=== PATIENT | female | born 1965 | race Two or more races ===

== ENCOUNTER 2023-12-04 08:04 | Outpatient (REF) | payer OTHER, MEDICAID, SELFPAY ==
--- NOTE | ~2023-12-04 | XR_ITS ---
EXAMINATION: XR KNEE, RIGHT CLINICAL INFORMATION: Unilateral primary osteoarthritis in the right knee. COMPARISON: None available. TECHNIQUE: Three views of the right knee. FINDINGS: Joint space narrowing is present in the medial and patellofemoral compartments with marginal osteophytes. Lateral compartment appears relatively well preserved. No joint effusion. Bones are osteopenic. No appreciable osseous loose bodies. Mild medial compartment osteoarthritis is also noted in the left knee on the AP view. XR/XR knee RT 3V IMPRESSION: Mild medial and patellofemoral compartment osteoarthritis in the right knee.
== END 2023-12-04 08:05 | disposition home or self-care (01) ==
LOC: HO.HOSX 08:04
PROVIDERS: Visit Provider Physician Assistant
DX: M17.0 Bilateral primary osteoarthritis of knee (principal); Z87.828 Personal history of other (healed) physical injury and trauma
CPT/HCPCS: 20610; 73562; 99212; J1010

== ENCOUNTER 2023-12-04 09:12 | Outpatient (AMB) | payer MEDICAID, SELFPAY ==
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
== END 2023-12-04 10:06 | disposition home or self-care (01) ==
PROVIDERS: Visit Provider Physician Assistant
DX: M17.0 Bilateral primary osteoarthritis of knee (principal); Z04.3 Encounter for examination and observation following other accident; V49.50XA Passenger injured in collision with unspecified motor vehicles in traffic accident, initial encounter
CPT/HCPCS: 20610; 99203

== ENCOUNTER 2025-01-23 08:15 | Outpatient (AMB) | payer OTHER, SELFPAY ==
--- OUTSIDE RECORDS SUMMARY | 2025-01-23 09:02 | XMS_ITS | Encounter Summary ---
Author Organization [employer] Address [address] [place] [address] [address] [place] [address] Care Team Providers Care Canoe Builder Name Role Phone Marlyn Oneil Primary Care Provider Unavailable Maria Isabel Peguero Unavailable Unavailable Inactive/Transferred Primary Care Provider Unava ilable Reason for Visit * Reason Comments Med Change Request Encounter Details Date Type Department Care Team (Late st Contact Info) Description 03/12/2023 Refill [facility] [address] [place] [address] Marlyn Oneil FNP Chronic fatigue; Moderate episode of recurrent major depressive disorder (CMS/HCC) Social History Tobacco Use Types Packs/Day Years Used Date Smoking Tobacco: Former Cigarettes Smokeless Tobacco: Never Alcohol Use Standard Drinks/Week Comments Never 0 (1 standard drink = 0.6 oz pur e alcohol) Depression Answer Date Recorded Patient Health Questionnaire-9 Score 12 10/23/2022 Housing Stability Answer Date Recorded What is your housing situation today? I have alana suarez 03/05/[address] you li ve. Do you have problems with any of the following? None of the above 03/05/2023 Food Insecurity Answer Date Recorded Within the past 12 months, y ou worried that your food would run out before you got money to buy more: Never True 03/05/2023 Within the past 12 months,th e food you bought just didn't last and you didn't have enough money to get more: Never True Transportation Answer Date Recorded In the past 12 months, has l ack of transportation kept you from medical appts, meetings, work or from getting things needed for daily living? No 03/05/2023 Utilities Answer Date Recorded In the past 12 months, has t he electric, gas, oil or water company threatened to shut off services in your home? No 03/05/2023 Depression Answer Date Recorded Patient Health Questionnaire-2 Score 3 10/23/2022 Education Answer Date Recorded What is the highest level of school you have completed or the highest degree you have received? 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 Did not need refill at this time documented in this encounter Plan of Treatment Not on file documented as of this encounter Visit Diagnoses Diagnosis Chronic fatigue Other malaise and fatigue Moderate episode of recurrent major depressive disorder (CMS/HCC) documented in this encounter Additional Health Concerns Assessment Noted Time PHQ-9 Depression Total Score: 12 023 2:34 PM EDT documented as of this encounter Care Teams Canoe Builder Relationship Specialty Start Date End Date Marlyn Oneil FNP PCP - General Family Medicine 08/01/22 07/20/24 Inactive/Transferred PCP - General 07/21/24 07/21/24 Maria Isabel Peguero Community Health Worker 09/15/22 documented as of this encounter
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
--- OUTSIDE RECORDS SUMMARY | 2025-01-23 09:02 | XMS_ITS | Encounter Summary ---
Author Organization [employer] Address [address] [place] [address] [address] [place] [address] Care Team Providers Care Airline Mechanic Name Role Phone Marlyn Oneil MANAGER ACTION Primary Care Provider Unavailable Maria Isabel Peguero Unavailable Unavailable Inactive/Transferred Primary Care Provider Unava ilable Encounter Details Date Type Department Care Team (Late st Contact Info) Description 12/07/2023 Orders Only [place] [facility] [address] [place] [address] Lora Shelby NP Cough in adult patient; History of asthma Social History Tobacco Use Types Packs/Day Years [...] 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 on file Not on file documented as of this encounter Plan of Treatment Not on file documented as of this encounter Procedures Procedure Name Priority Date/Time Associated Diagnosis Comments PULMONARY FUNCTION TESTING Routine 11/27/2023 Cough in adult patient History of asthma documented in this encounter Results * Pulmonary function test (11/27/2023) [facility]EMAN PFT ORDERABLES Final Result documented in this encounter Visit Diagnoses Diagnosis Cough in adult patient History of asthma Personal history of other diseases of respiratory system documented in this encounter Additional Health Concerns Assessment Noted Time PHQ-9 Depression Total Score: 9 08/05/19 24 11:58 AM EDT documented as of this encounter Care Teams Airline Mechanic Relationship Specialty Start Date End Date Marlyn Oneil FNP PCP - General Family Medicine 08/01/22 07/20/24 Inactive/Transferred PCP - General 07/21/24 07/21/24 Maria Isabel Peguero Community Health Worker 09/15/22 documented as of this encounter
--- OUTSIDE RECORDS SUMMARY | 2025-01-23 09:02 | XMS_ITS | Encounter Summary ---
Author Organization [employer] Address [address] [place] [address] [address] [place] [address] Care Team Providers Care Training Specialist Name Role Phone Marlyn Oneil Primary Care Provider Unavailable Maria Isabel Peguero Unavailable Unavailable Inactive/Transferred Primary Care Provider Unava ilable Reason for Visit * Reason Comments Med Change Request Encounter Details Date Type Department Care Team (Late st Contact Info) Description 03/12/2023 Refill [place] [facility] [address] [place] [address] Marlyn Oneil FNP Chronic fatigue; Moderate episode [...] 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
--- OUTSIDE RECORDS SUMMARY | 2025-01-23 09:02 | XMS_ITS | Encounter Summary ---
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 on file Not on file documented as of this encounter Plan of Treatment Not on file documented as of this encounter Visit Diagnoses Diagnosis Paraesophageal hernia Diaphragmatic hernia without mention of obstruction or gangrene documented in this encounter Additional Health Concerns Assessment Noted Time PHQ-9 Depression Total Score: 9 08/05/19 24 11:58 AM EDT documented as of this encounter Care Teams Tannery Worker Relationship Specialty Start Date End Date Marlyn Oneil FNP PCP - General Family Medicine 08/01/22 07/20/24 Inactive/Transferred PCP - General 07/21/24 07/21/24 Maria Isabel Peguero Community Health Worker 09/15/22 documented as of this encounter
--- OUTSIDE RECORDS SUMMARY | 2025-01-23 09:02 | XMS_ITS | Encounter Summary ---
Author Organization [employer] Address [address] [place] [address] [address] [place] [address] Care Team Providers Care Undercover Operator Name Role Phone Marlyn Oneil Primary Care Provider Unavailable Maria Isabel Peguero Unavailable Unavailable Inactive/Transferred Primary Care Provider Unava ilable Reason for Visit * Reason Comments Med Refill Encounter Details Date Type Department Care Team (Late st Contact Info) Description 12/01/2023 Refill [place] [facility] [address] [place] [address] Marlyn Oneil FNP Uncomplicated severe persistent asthma Social History Tobacco Use Types Packs/Day [...] the past 12 months, has t he [employer], gas, oil or water company threatened to [...] 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 Encourage pt to get up to date with all adult vaccines including RSV, annual influenza vaccine, COVID 19 booster when available and pneumonia vaccine. * Telephone Encounter - ELINA George - 12/02/2023 2:10 PM EDT Already sent. documented in this encounter Plan of Treatment Not on file documented as of this encounter Visit Diagnoses Diagnosis Uncomplicated severe persistent asthma documented in this encounter Additional Health Concerns Assessment Noted Time PHQ-9 Depression Total Score: 9 08/05/19 24 11:58 AM EDT documented as of this encounter Care Teams Undercover Operator Relationship Specialty Start Date End Date Marlyn Oneil FNP PCP - General Family Medicine 08/01/22 07/20/24 Inactive/Transferred PCP - General 07/21/24 07/21/24 Maria Isabel Peguero Community Health Worker 09/15/22 documented as of this encounter
--- OUTSIDE RECORDS SUMMARY | 2025-01-23 09:03 | XMS_ITS | Encounter Summary ---
Author Organization [employer] Address [address] [facility] [address] [place] [address] Care Team Providers Care Molasses Coloring Operator Name Role Phone Marlyn Oneil ELINA Primary Care Provider Unavailable Maria Isabel Peguero Unavailable Unavailable Inactive/Transferred Primary Care Provider Unava ilable Encounter Details Date Type Department Care Team (Late st Contact Info) Description 07/27/2023 Orders Only [place] [facility] [address] [place] [address] Provider, MD Bryant Social History Tobacco Use Types Packs/Day Years Used Date Smoking Tobacco: Former Cigarettes Passive Smoke Exposure: Past Smokeless Tobacco: Never Alcohol Use Standard Drinks/Week Comments Never 0 (1 standard drink = 0.6 oz pur e alcohol) Depression Answer Date Recorded Patient Health Questionnaire-9 Score 18 05/06/2023 Patient Health Questionnaire-9 Score 18 05/06/2023 Last PHQ-9: Questionnaire Data Not on file 1 07/07/2022 Housing Stability Answer Date Recorded What is [...] Answer Date Recorded Patient Health Questionnaire-2 Score 6 05/06/2023 Education Answer Date Recorded What is the [...] 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 on file Not on file documented as of this encounter Plan of Treatment Not on file documented as of this encounter Procedures Procedure Name Priority Date/Time Associated Diagnosis Comments XR HIPS BILATERAL 2 VIEWS WITH OR WITHOUT PELVIS Routine 07/20/2023 6:49 PM EST documented in this encounter Results * XR Hips Bilateral 2 Views with or without Pelvis (07/20/2023 6:49 PM EST) Anatomical Region Laterality Modality Lower Extremities, Hip Bilateral Radiograp hic Imaging us Historical Provider MD DIMAS XR PROCEDURES Final R esult documented in this encounter Visit Diagnoses Not on filedocumented in this encounter Additional Health Concerns Assessment Noted Time PHQ-9 Depression Total Score: 18 023 11:30 AM EST documented as of this encounter Care Teams Molasses Coloring Operator Relationship Specialty Start Date End Date Marlyn Oneil FNP PCP - General Family Medicine 08/01/22 07/20/24 Inactive/Transferred PCP - General 07/21/24 07/21/24 Maria Isabel Peguero Community Health Worker 09/15/22 documented as of this encounter
--- OUTSIDE RECORDS SUMMARY | 2025-01-23 09:03 | XMS_ITS | Clinical Summary ---
Author Organization [facility] Address [address] [facility] [address] [place] [id number] Phone Care Team Providers Care Hairspring Staker Name Role Phone Destin White Marlynemily Gustafson SPRAY MACHINE TENDER Primary Care Pr ovider Allergies Active Allergy Reactions Criticality Noted Date Comments Aspirin Nausea and/or Vomiting 03/16/2019 Baclofen Swelling 03/16/2019 edema Sulfamethoxazole-Trimetho prim 03/16/2019 Throat burning Ciprofibrate 01/07/2017 Ciprofloxacin 03/16/2019 Fluoxetine Mental Status Change 03/16/2019 Gabapentin Swelling 03/16/2019 edema Ibuprofen Nausea and/or Vomiting 03/16/2019 Pregabalin 03/16/2019 ?SJS Succinylcholine 01/07/2017 Succinylcholine Chloride Anaphylaxis High 03/16/2019 Tizanidine Dizziness,Hallucinat ions High 05/09/2021 Medications omeprazole (PRILOSEC) 20 MG capsule Take 20 mg by mouth 2 (two) times a day. Active fluticasone propion-salmetero l (ADVAIR DISKUS) 500-50 mcg/dose DISKUS Inhale 500 mcg/actuation of fluticasone into the lungs 2 (two) times a day. Active albuterol 90 mcg/actuation inhaler Inhale 2 puffs into the lungs every 6 (six) hours as needed. Active DULoxetine (CYMBALTA) 30 MG capsuleIndication s:Fibromyalgia Take 2 capsules (60 mg total) by mouth 2 (two) times a day. 180 capsule 1 0 Active cholecalciferol, vitamin D3, 50 mcg/drop (2, 000 unit/drop) DropIndications:V itamin D insufficiency Take 4,000 Units by mouth daily. 30 mL 2 2 Active Medication-Free TextIndications:F ibromyalgia Naltrexone 3mg nightly 30 capsule 1 2 Active Active Problems Problem Noted Date Diagnosed Date YUDELKA positive 08/11/2021 Assessment & Plan (08/11/2021 10:26 PM EDT): I have reviewed with Candelaria that there are no additional data to confirm major systemic rheumatic disease(s) such as systemic lupus erythematosus, Sjogren's syndrome etc. at this time. Low positive YUDELKA in an individual 55 years of age and older without additional abnormalities may be considered a sign of immunologic senescence I previously provided her with literature on slow acting disease modifying antirheumatic drug (DMARD)-Plaquenil that is documented in literature to help with fatigue, arthralgias, joint stiffness and reduce the rate of immunologic drive and therefore flares of the disease. She does not feel ready to start any additional medications at this time. Dry eye syndrome of both eyes 05/09/2021 Assessment & Plan (08/07/2021 3:33 PM EDT): Keep well-hydrated. Avoid spicy and acidic foods. Diligent mouth hygiene. Regular dental checkups. Assessment & Plan (05/25/2021 9:49 PM EST): Keep well-hydrated. Avoid spicy and acidic foods. Diligent eyes and mouth hygiene. Regular ocular and dental checkups. Fibromyalgia 03/16/2019 Assessment & Plan (08/07/2021 3:34 PM EDT): We discussed the diagnosis of fibromyalgia, its natural history, and treatment. Specifically, we discussed that treatment requires many interventions and recognition that we are often unable to get patients completely pain free. Management of fibromyalgia requires patient engagement to address any underlying depression, anxiety, or sleep disorder. Further, patients are encouraged to engage in regular physical activity. Some studies have suggested that Hans Chi is effective. Other physical activity may including water-based aerobics, gentle yoga, walking, biking, Pilates etc. In terms of pharmacotherapy, there are many options, including tricyclic antidepressants, duloxetine, gabapentin or pregabalin, and cyclobenzaprine as well as other similar medications to those listed. In this case, the patient might try to continue on current Cymbalta and focus on nonpharmacologic measures. Additional benefit will be from following the advice written by Dr Mac Jones in his book [employer] catastrophe living addressing management strategies for patients with fibromyalgia utilizing mindfulness approach. Assessment & Plan (05/25/2021 9:49 PM EST): We discussed the diagnosis of fibromyalgia, its natural history, and treatment. Specifically, we discussed that treatment requires many interventions and recognition that we are often unable to get patients completely pain free. Management of fibromyalgia requires patient engagement to address any underlying depression, anxiety, or sleep disorder. Further, patients are encouraged to engage in regular physical activity. Some studies have suggested that Hans Chi is effective. Other physical activity may including water-based aerobics, gentle yoga, walking, biking, Pilates etc. In terms of pharmacotherapy, there are many options, including tricyclic antidepressants, duloxetine, gabapentin or pregabalin, and cyclobenzaprine as well as other similar medications to those listed. In this case, the patient might try to continue on current Cymbalta and focus on nonpharmacologic measures. Additional benefit will be from following the advice written by Dr Mac Jones in his book [employer] catastrophe living addressing management strategies for patients with fibromyalgia utilizing mindfulness approach. Assessment & Plan (07/07/2019 12:03 PM EST): We discussed the diagnosis of fibromyalgia, its natural history, and treatment. Specifically, we discussed that treatment requires many interventions and recognition that we are often unable to get patients completely pain free. Management of fibromyalgia requires patient engagement to address any underlying depression, anxiety, or sleep disorder. Further, patients are encouraged to engage in regular physical activity. Some studies have suggested that Hans Chi is effective. Other physical activity may including water-based aerobics, gentle yoga, walking, biking, Pilates etc. In terms of pharmacotherapy, there are many options, including tricyclic antidepressants, duloxetine, gabapentin or pregabalin, and cyclobenzaprine as well as other similar medications to those listed. In this case, the patient might try to continue on current Cymbalta and focus on nonpharmacologic measures. Additional benefit will be from following the advice written by Dr Mac Jones in his book [employer] catastrophe living addressing management strategies for patients with fibromyalgia utilizing mindfulness approach. Assessment & Plan (05/22/2019 10:06 AM EST): We discussed the diagnosis of fibromyalgia, its natural history, and treatment. Specifically, we discussed that treatment requires many interventions and recognition that we are often unable to get patients completely pain free. Management of fibromyalgia requires patient engagement to address any underlying depression, anxiety, or sleep disorder. Further, patients are encouraged to engage in regular physical activity. Some studies have suggested that Hans Chi is effective. Other physical activity may including water-based aerobics, gentle yoga, walking, biking, Pilates etc. In terms of pharmacotherapy, there are many options, including tricyclic antidepressants, duloxetine, gabapentin or pregabalin, and cyclobenzaprine as well as other similar medications to those listed. In this case, the patient might try to continue on current Cymbalta and focus on nonpharmacologic measures. Additional benefit will be from following the advice written by Dr Mac Jones in his book [employer] catastrophe living addressing management strategies for patients with fibromyalgia utilizing mindfulness approach. Assessment & Plan (03/16/2019 10:44 PM EDT): We discussed the diagnosis of fibromyalgia, its natural history, and treatment. Specifically, we discussed that treatment requires many interventions and recognition that we are often unable to get patients completely pain free. Management of fibromyalgia requires patient engagement to address any underlying depression, anxiety, or sleep disorder. Further, patients are encouraged to engage in regular physical activity. Some studies have suggested that Hans Chi is effective. Other physical activity may including water-based aerobics, gentle yoga, walking, biking, Pilates etc. In terms of pharmacotherapy, there are many options, including tricyclic antidepressants, duloxetine, gabapentin or pregabalin, and cyclobenzaprine as well as other similar medications to those listed. In this case, the patient might try to continue on current Cymbalta and focus on nonpharmacologic measures. Additional benefit will be from following the advice written by Dr Mac Jones in his book [employer] catastrophe living addressing management strategies for patients with fibromyalgia utilizing mindfulness approach. ALTON (obstructive sleep apnea) 03/16/2019 Assessment & Plan (08/07/2021 3:35 PM EDT): Close follow-up with binder roller/respiratory therapy. Benefits of reducing weight as close as possible to ideal range for her height reviewed and strongly encouraged Assessment & Plan (05/25/2021 9:48 PM EST): Close follow-up with binder roller/respiratory therapy. Benefits of reducing weight as close as possible to ideal range for her height reviewed and strongly encouraged Assessment & Plan (07/07/2019 12:05 PM EST): Close follow-up with binder roller/respiratory therapy. Benefits of reducing weight as close as possible to ideal range for her height reviewed and strongly encouraged Assessment & Plan (05/22/2019 10:04 AM EST): Close follow-up with binder roller/respiratory therapy. Benefits of reducing weight as close as possible to ideal range for her height reviewed and strongly encouraged Assessment & Plan (03/16/2019 10:36 PM EDT): Close follow-up with binder roller/respiratory therapy. Benefits of reducing weight as close as possible to ideal range for her height reviewed and strongly encouraged On selective serotonin reuptake inhibitor (SSRI) therapy 03/16/2019 Assessment & Plan (08/07/2021 3:34 PM EDT): Monitor for mood swings, increased muscle rigidity and temperature intolerance. Assessment & Plan (05/25/2021 9:50 PM EST): Monitor for mood swings, increased muscle rigidity and temperature intolerance. Assessment & Plan (07/07/2019 12:05 PM EST): Monitor for mood swings, increased muscle rigidity and temperature intolerance. Assessment & Plan (05/22/2019 10:07 AM EST): Monitor for mood swings, increased muscle rigidity and temperature intolerance. Assessment & Plan (03/16/2019 10:46 PM EDT): Monitor for mood swings, increased muscle rigidity and temperature intolerance. Gastroesophageal reflux disease with esophagitis 03/16/2019 Assessment & Plan (08/07/2021 3:34 PM EDT): Avoid late, large, spicy meals. Keep headboard elevated at 45 angle for nighttime. Assessment & Plan (05/25/2021 9:49 PM EST): Avoid late, large, spicy meals. Keep headboard elevated at 45 angle for nighttime. Assessment & Plan (07/07/2019 12:04 PM EST): Avoid late, large, spicy meals. Keep headboard elevated at 45 angle for nighttime. Assessment & Plan (05/22/2019 10:06 AM EST): Avoid late, large, spicy meals. Keep headboard elevated at 45 angle for nighttime. Assessment & Plan (03/16/2019 10:45 PM EDT): Avoid late, large, spicy meals. Keep headboard elevated at 45 angle for nighttime. Class 3 severe obesity due t o excess calories with serious comorbidity and body mass index (BMI) of 40.0 to 44.9 in adult 03/16/2019 Assessment & Plan (08/07/2021 3:29 PM EDT): Portion control. Limit concentrated sugars, saturated fats and calories in the diet. Keep well-hydrated. If unable to achieve expected goal consider formal dietary/nutritional support. Assessment & Plan (05/25/2021 9:48 PM EST): Portion control. Limit concentrated sugars, saturated fats and calories in the diet. Keep well-hydrated. If unable to achieve expected goal consider formal dietary/nutritional support. Assessment & Plan (07/07/2019 12:03 PM EST): Portion control. Limit concentrated sugars, saturated fats and calories in the diet. Keep well-hydrated. If unable to achieve expected goal consider formal dietary/nutritional support. Assessment & Plan (05/22/2019 10:04 AM EST): Portion control. Limit concentrated sugars, saturated fats and calories in the diet. Keep well-hydrated. If unable to achieve expected goal consider formal dietary/nutritional support. Assessment & Plan (03/16/2019 10:36 PM EDT): Portion control. Limit concentrated sugars, saturated fats and calories in the diet. Keep well-hydrated. If unable to achieve expected goal consider formal dietary/nutritional support. PTSD (post-traumatic stress disorder) 03/16/2019 Assessment & Plan (08/07/2021 3:35 PM EDT): I reviewed with patient benefit of personal psychotherapy though she remains hesitant at this time to start it Assessment & Plan (05/25/2021 9:50 PM EST): I reviewed with patient benefit of personal psychotherapy though she remains hesitant at this time to start it Assessment & Plan (07/07/2019 12:05 PM EST): I reviewed with patient benefit of personal psychotherapy though she remains hesitant at this time to start it Assessment & Plan (05/22/2019 10:07 AM EST): I reviewed with patient benefit of personal psychotherapy though she remains hesitant at this time to start it Assessment & Plan (03/16/2019 10:45 PM EDT): I reviewed with patient benefit of personal psychotherapy though she feels hesitant at this time to start it Status post hysterectomy 03/16/2019 Assessment & Plan (03/16/2019 10:48 PM EDT): Proper hydration. Well-balanced nutritionally diet. Gentle, regular exercise routine, gradually building up to the goal of 30-45 minutes 5-6 times a week. Anxiety 03/16/2019 Assessment & Plan (03/16/2019 10:46 PM EDT): Avoid triggers. Deep breathing technique. Regular relaxation and meditation sessions. Consider formal personal psychotherapy when ready. Vitamin D insufficiency 03/16/2019 Assessment & Plan (08/07/2021 3:36 PM EDT): Serum level requested to make sure that she does not require additional supplementation. Assessment & Plan (05/25/2021 9:48 PM EST): Serum level requested to make sure that she does not require additional supplementation. Assessment & Plan (07/07/2019 12:05 PM EST): Continue proper supplementation to replace deficit. Assessment & Plan (05/22/2019 10:05 AM EST): Continue proper supplementation to replace deficit. Assessment & Plan (03/16/2019 10:37 PM EDT): Serum level requested and depending on reading proper supplementation. Primary osteoarthritis involving multiple joints 03/16/2019 Assessment & Plan (08/07/2021 4:06 PM EDT): Joint protection, energy conservation. Avoid falls, injuries, overuse. Work on reducing body weight as close as possible to ideal range for her height. Gentle, regular exercise routine. Warm pool exercise program to begin with.-Order provided today Procedure: After an informed oral consent, under sterile conditions using Ethyl chloride spray for local anesthesia I have injected 20 mg DepoMedrol and 0.5 cc 1% Lidocaine into R 1st MCP uneventfully. Details of post-procedure care were explained to the patient in the office and given in writing. Provider: Mary Coulter MD Patient: Candelaria Malloy : 1965 Date: 08/07/2021 Procedure: After an informed oral consent, under sterile conditions using Ethyl chloride spray for local anesthesia I have injected 20 mg DepoMedrol and 0.5 cc 1% Lidocaine into R 2nd DIP uneventfully. Details of post-procedure care were explained to the patient in the office and given in writing. Provider: Mary Coulter MD Patient: Candelaria Malloy : 1965 Date: 08/07/2021 Assessment & Plan (05/25/2021 9:48 PM EST): Joint protection, energy conservation. Avoid falls, injuries, overuse. Work on reducing body weight as close as possible to ideal range for her height. Gentle, regular exercise routine. Warm pool exercise program to begin with.-Order provided today Assessment & Plan (07/07/2019 12:03 PM EST): Joint protection, energy conservation. Avoid falls, injuries, overuse. Work on reducing body weight as close as possible to ideal range for her height. Gentle, regular exercise routine. Warm pool exercise program to begin with.-Order provided today Assessment & Plan (04/27/2019 11:33 AM EST): Joint protection, energy conservation. Avoid falls, injuries, overuse. Work on reducing body weight as close as possible to ideal range for her height. Gentle, regular exercise routine. Warm pool exercise program to begin with.-Order provided today Procedure: After an informed oral consent, under sterile conditions using Ethyl chloride spray for local anesthesia I have injected 40 mg DepoMedrol and 2 cc 1% Lidocaine into Left from medil approach uneventfully. Details of post-procedure care were explained to the patient in the office and given in writing. Assessment & Plan (03/16/2019 10:38 PM EDT): Joint protection, energy conservation. Avoid falls, injuries, overuse. Work on reducing body weight as close as possible to ideal range for her height. Gentle, regular exercise routine. Warm pool exercise program to begin with.-Order provided today Resolved Problems Problem Noted Date Diagnosed Date Resolved Date YUDELKA positive 03/16/2019 08/11/2021 Assessment & Plan (07/10/2019 9:55 AM EST): We reviewed with Candelaria that there are no additional data to confirm major systemic rheumatic disease(s) such as systemic lupus erythematosus, Sjogren's syndrome etc. at this time. I previously provided her with literature on slow acting disease modifying antirheumatic drug (DMARD)-Plaquenil that is documented in literature to help with fatigue, arthralgias, joint stiffness and reduce the rate of immunologic drive and therefore flares of the disease. She does not feel ready to start any additional medications at this time. Assessment & Plan (05/22/2019 10:04 AM EST): In view of positive YUDELKA on a couple of occasions however increased titer I took the liberty of more specific tests to look for possible additional data to confirm major systemic rheumatic disease possibly systemic lupus erythematosus. I provided her with literature on slow acting disease modifying antirheumatic drug (DMARD)-Plaquenil that is documented in literature to help with fatigue, arthralgias, joint stiffness and reduce the rate of immunologic drive and therefore flares of the disease. Assessment & Plan (03/16/2019 10:35 PM EDT): There is a report of low positive YUDELKA in her PCPs note from 12/07/2018. She is signing medical records release for it.. Social History Tobacco Use Types Packs/Day Years Used Date Smoking Tobacco: Former Smokeless Tobacco: Never Alcohol Use Standard Drinks/Week Comments Yes 0 (1 standard drink = 0.6 oz pur e alcohol) rare Education Answer Date Recorded Are you interested in more education? Not on radha e 09/12/2022 Are you concerned about learning? Not on file 09/12/2022 No 09/12/2022 No 09/12/2022 Digital Access Answer Date Recorded No 10/14/2022 No 10/14/2022 No 10/14/2022 Reliable internet access at home? Not on file 10/14/2022 Device with a working camera? Not on file Comments Unknown Sex and Gender Information Value Date Recorded Sex Assigned at Not on file Legal Sex Female 11:40 AM EDT Gender Identity Not on file Sexual Orientation Not on file Last Filed Vital Signs Vital Sign Reading Time Taken Comments Blood Pressure 130/70 07/07/2019 11:43 AM EST Pulse - - Temperature - - Respiratory Rate - - Oxygen Saturation - - Inhaled Oxygen Concentration - - Weight 105.1 kg (231 lb 12. 8 oz) 08/07/2021 3:01 PM EDT WITH SHOES Height 158.8 cm (5' 2.5 ) 08/07/2021 3: 01 PM EDT Body Mass Index 41.72 08/07/2021 3:01 PM EDT Plan of Treatment Health Maintenance Due Date Last Done Comments LIPID PANEL 1965 DEPRESSION SCREENING 1975 SMOKING Hx and SMOKELESS TOB ACCO SCREENING 1976 HEPATITIS C SCREENING 1981 HIV ONE-TIME SCREENING (18-6 5 YEARS) 1981 MAMMOGRAM 2003 COLOGUARD 2008 COLONOSCOPY 2008 COLORECTAL CANCER SCREENING 2008 FIT TEST 2008 FOBT 2008 SIGMOIDOSCOPY 2008 VIRTUAL COLONOSCOPY 2008 PNEUMOCOCCAL VACCINES (50+ y ears) (2 of 2 - PCV) 2013 11/02/2007 ZOSTER VACCINES (1 of 2) 2013 Adult Td,Tdap Booster 11/17/2018 11/17/2008 INFLUENZA VACCINE (#1) 2024 COVID-19 VACCINE ( - 2023-2 5 season) 2025 RSV VACCINE (1 - 1-dose 75+ series) 2038 HEPATITIS A VACCINES Aged Out No long er eligible based on patient's age to complete this topic HIB VACCINES Aged Out No longer eligi ble based on patient's age to complete this topic MENINGOCOCCAL VACCINES (ACWY) Aged Out No longer eligible based on patient's age to complete this topic MENINGOCOCCAL VACCINES (B) Aged Out N o longer eligible based on patient's age to complete this topic Medical Devices Not on file Insurance C3 ACO C3 ACO C3 ACO C3 ACO C3 ACO [facility] C3 ACO Care Teams Hairspring Staker Relationship Specialty Start Date End Date [facility] [place] [id number] PCP - General Family Medicine 07/07/19 Additional Source Comments The information contained in this document represents components of the legal health record. It is not the complete legal health record.[facility]
--- OUTSIDE RECORDS SUMMARY | 2025-01-23 09:03 | XMS_ITS | Clinical Summary ---
Author Organization [facility] Address [address] [place] [address] Care Team Providers Care Multi Craft Maintenance Technician Name Role Phone Lily Corbett MD Primary Care Provider Allergies Active Allergy Reactions Criticality Noted Date Comments Aspirin 01/07/2017 Sulfamethoxazole-Trimethoprim 2016 Ciprofibrate 01/07/2017 Gabapentin 01/07/2017 Ibuprofen 01/07/2017 Succinylcholine 01/07/2017 Medications Medication Sig Dispensed Refills Start Date End Date Status fluticasone-salmeter ol (ADVAIR DISKUS) 500-50 MCG/DOSE DISKUS 1 inhalation by Inhaled route every 12 (twelve) hours. 0 Active albuterol (PROVENTIL HFA;VENTOLIN HFA) 108 (90 BASE) MCG/ACT inhaler Inhale 2 puffs into the lungs every 6 (six) hours as needed for wheezing. 0 Active albuterol (2.5 MG/3ML) 0.083% NEBU 3 mL, albuterol (5 MG/ML) 0.5% NEBU 0.5 mL Inhale into the lungs. 0 Active omeprazole (PRILOSEC) 20 MG capsule Take 20 mg by mouth daily. 0 Active docusate sodium (COLACE) 100 MG capsule Take 100 mg by mouth 2 (two) times a day. 0 Active Hnrggww-Brtfojeyc-Sm tamin D (CALCIUM 500 PO) Take by mouth daily. 0 Acti ve nitrofurantoin (MACRODANTIN) 50 MG capsule Take 50 mg by mouth daily. 0 Active cholecalciferol (VITAMIN D3) 1000 UNITS tablet Take 1,000 Units by mouth daily. 0 Active [place]-3 Fatty Acids (FISH OIL PO) Take 1,000 mg by mouth daily. 0 Active duloxetine (CYMBALTA) DR capsule 30 mg Take 30 mg by mouth 2 (two) times a day. 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 Social History Tobacco Use Types Packs/Day Years Used Date Smoking Tobacco: Some Days Smokeless Tobacco: Never Alcohol Use Standard Drinks/Week Comments Yes 0 (1 standard drink = 0.6 oz pur e alcohol) socially Sex and Gender Information Value Date Recorded Sex Assigned at Not on file Gender Identity Not on file Sexual Orientation Not on file Job Start Date Occupation Industry Not on file Not on file Not on file Last Filed Vital Signs Vital Sign Reading Time Taken Comments Blood Pressure 128/71 01/07/2017 2:36 PM EDT Pulse 84 01/07/2017 2:36 PM EDT Temperature - - Respiratory Rate - - Oxygen Saturation - - Inhaled Oxygen Concentration - - Weight 99.8 kg (220 lb) 01/07/2017 2:36 PM EDT Height - - Body Mass Index - - Plan of Treatment Health Maintenance Due Date Last Done Comments Hepatitis C Screening 1965 COVID-19 Vaccine (#1) 1963 Pneumococcal Vaccine (1 of 2 - PCV) 1969 Depression Screening 1975 Preventative Health Evaluation 1981 DTap / Tdap / Td (1 - Tdap) 1982 Cervical Cancer Screening (P ap Smear) 1984 Colon Cancer Screening (Colonoscopy) 2008 Breast Cancer Screening (Mammogram) 2013 Shingrix-Zoster Vaccine (1 of 2) 2013 Influenza Vaccine (#1) 2025 RSV Adult > 60+ Yrs or Pregn ant (1 - 1-dose 75+ series) 2038 Hepatitis B Vaccines Aged Out No long er eligible based on patient's age to complete this topic RSV Ped < 20 months Aged Out No longe r eligible based on patient's age to complete this topic Care Teams Multi Craft Maintenance Technician Relationship Specialty Start Date End Date Lily Corbett MD [address] [facility] [place] [id number] PCP - General Family Medicine 01/07/17
--- NOTE | 2025-01-23 10:03 | MHC.OFFVISWM ---
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 BMI 36.2 Allergies succinylcholine Allergy (Severe, Verified 01/23/25 10:04) Anaphylaxis aspirin Allergy (Intermediate, Verified 01/23/25 10:04) throat burning sulfamethoxazole (From Bactrim) Allergy (Intermediate, Verified 01/23/25 10:04) Blister trimethoprim (From Bactrim) Allergy (Intermediate, Verified 01/23/25 10:04) Blister Medication List - Last Reconciled 01/23/25 by Gabo Ireland MD albuterol sulfate 90 mcg/actuation (Ventolin HFA) 2 puffs inhalation Q6H PRN duloxetine 30 mg PO BID fluticasone propion-salmeterol 100-50 mcg/dose (Advair Diskus) 1 inh inhalation BID omeprazole 20 mg PO BID HPI HPI TV PREPRESS OPERATOR Revision Lap Band BMI 36.2: Details: Start time: 9.50am, End time: 10.42am ?I spent 47 minutes speaking with the patient on the phone plus an additional 5 minutes reviewing and updating records for a total of 52 minutes HPI Comments Details: Previous weight loss efforts: Lap band pre lap band: 286lb, lowest: 130lbs) Sleeps: 5am, Wakes 10am Breakfast: skips Lunch: x2/wk (scrambled eggs, crackers with cheese) Dinner: 5-6pm (rice, chicken) Snacks: 3 times after dinner (watermelon, popsicles, chips and dip, crackers with cheese) Exercise: none Beverages: Coffee (1 cup/d with Creamer and Splenda), Tea: none, Soda: diet Pepsi, Juice: none, ETOH: none PFSH Medical History (Updated 01/23/25 @ 10:31 by Gabo Ireland MD) DJD (degenerative joint disease) GERD (gastroesophageal reflux disease) Fibromyalgia Asthma BMI 36.0-36.9,adult Obesity Surgical History (Updated 01/11/25 @ 14:20 by Areli Briseno CMA) Hx of hysterectomy Hx of foot surgery Hx of carpal tunnel repair Hx of hernia repair Hx of section Hx of plastic surgery Status post gastric banding surgery Family History (Updated 01/11/25 @ 14:23 by Areli Briseno CMA) Mother Alzheimer dementia Father COPD (chronic obstructive pulmonary disease) Asthma Hypertension Daughter Obesity Son Special educational needs Obesity Social History (Updated 01/11/25 @ 14:24 by Areli Briseno CMA) Alcohol intake: never Patient Tobacco Use Status: Current someday Tobacco user Cigarettes Per Day: 6 Telehealth Telehealth Telehealth Platform: Telephone Location of provider rendering services: practice address Location of patient: address on file Patient Identification confirmed using: Name, : Yes Telehealth method: voice only Patient verbally consented to treatment: Yes Patient verbally consented to billing insurance company: Yes Patient informed of any privacy concerns related to visit: Yes Minutes spent on Phone/Video with Pt.: 52 Assessment & Plan Assessment & Plan (1) Obesity: Code(s): E66.9 - Obesity, unspecified Category: Medical Qualifiers: Obesity type: due to excess calories Obesity classification: adult class 2 (BMI 35 - 39.9) Serious obesity comorbidity presence: without serious comorbidity Body mass index: BMI 36.0-36.9 Qualified Code(s): E66.812 - Obesity, class 2; E66.09 - Other obesity due to excess calories; Z68.36 - Body mass index [BMI] 36.0-36.9, adult Plan: 1. Plan for lap band removal and upper endoscopy. It will be an outpatient procedure. Risks of bleeding, infections, and blood clots were discussed with the patient but the risk is very low and the band needs to be removed as it causes constant vomiting and reflux 2. As of tomorrow stop the food and all snacks and follow this plan: Start with one premade PREMIER protein (buy at [employer] or [employer]) shake (mix 4oz of Premier mixed with 4oz low fat unsweetened almond milk each) at 11am-1pm, one protein bar (Fit Crunch protein bar, buy at [employer], or [employer]) at 2pm-4pm, another premade PREMIER protein shake (mix 4oz of Premier mixed with 4oz low fat unsweetened almond milk each) at 5pm-7pm, another Fit Crunch protein bar at 8pm-10pm,?premade PREMIER protein (buy at [employer] or [employer]) shake (mix 4oz of Premier mixed with 4oz low fat unsweetened almond milk each) at 11pm to 1am, another Fit Crunch bar at 2am-4am So you do 3 protein shakes, 3 protein bars per day. Meal to include lean meat (beef, fish, pork, turkey, chicken), or haitian yogurt, or egg whites, or beans with a salad with olive oil and fruits (berries, pears, apples, kiwi). Avoid salt, breads, potatoes, rice, pasta, desserts. 3. Each shake would be drunk slowly, like coffee in a period of 2 hours. 4. Cut each bar in 4 pieces and eat each piece in 30min ?to make each bar last 2 hours. 5. Measure your blood pressure every morning and send me the readings 6. Please go tomorrow to the hospital to do the blood work fasting for 12 hours, the EKG and the chest xray. 8.? Please use the body composition scale as we discussed and send me weight measurements tomorrow. 9. The best choice would be to purchase a basic stationary bike at home that can track calories. Let me know if you do so I can give you an exercise plan. 10. Please follow the diet plan exactly without any change. If you don't like something about the plan or you feel hungry you need to communicate with me so I can help you revise the plan. You should not change the plan yourself Orders: Orders IRON PROFILE Today E66.9 - Obesity, unspecified, J45.909 - Unspecified asthma, uncomplicated, K21.9 - Gastro-esophageal reflux disease without esophagitis, Z68.36 - Body mass index [BMI] 36.0-36.9, adult Zinc Today E66.9 - Obesity, unspecified, J45.909 - Unspecified asthma, uncomplicated, K21.9 - Gastro-esophageal reflux disease without esophagitis, Z68.36 - Body mass index [BMI] 36.0-36.9, adult C Reactive Protein Today E66.9 - Obesity, unspecified, J45.909 - Unspecified asthma, uncomplicated, K21.9 - Gastro-esophageal reflux disease without esophagitis, Z68.36 - Body mass index [BMI] 36.0-36.9, adult Vitamin B1 Today E66.9 - Obesity, unspecified, J45.909 - Unspecified asthma, uncomplicated, K21.9 - Gastro-esophageal reflux disease without esophagitis, Z68.36 - Body mass index [BMI] 36.0-36.9, adult TSH reflex Free T4 Today E66.9 - Obesity, unspecified, J45.909 - Unspecified asthma, uncomplicated, K21.9 - Gastro-esophageal reflux disease without esophagitis, Z68.36 - Body mass index [BMI] 36.0-36.9, adult Vitamin D 25-OH Total Today E66.9 - Obesity, unspecified, J45.909 - Unspecified asthma, uncomplicated, K21.9 - Gastro-esophageal reflux disease without esophagitis, Z68.36 - Body mass index [BMI] 36.0-36.9, adult FL upper GI w air Today E66.9 - Obesity, unspecified, J45.909 - Unspecified asthma, uncomplicated, K21.9 - Gastro-esophageal reflux disease without esophagitis, Z68.36 - Body mass index [BMI] 36.0-36.9, adult Prothrombin Time INR Today E66.9 - Obesity, unspecified, Z68.36 - Body mass index [BMI] 36.0-36.9, adult Partial Thromboplastin Time Today E66.9 - Obesity, unspecified, Z68.36 - Body mass index [BMI] 36.0-36.9, adult Insulin Today E66.9 - Obesity, unspecified, J45.909 - Unspecified asthma, uncomplicated, K21.9 - Gastro-esophageal reflux disease without esophagitis, Z68.36 - Body mass index [BMI] 36.0-36.9, adult Hemoglobin A1c Today E66.9 - Obesity, unspecified, J45.909 - Unspecified asthma, uncomplicated, K21.9 - Gastro-esophageal reflux disease without esophagitis, Z68.36 - Body mass index [BMI] 36.0-36.9, adult H Pylori Breath Test Today E66.9 - Obesity, unspecified, J45.909 - Unspecified asthma, uncomplicated, K21.9 - Gastro-esophageal reflux disease without esophagitis, Z68.36 - Body mass index [BMI] 36.0-36.9, adult Complete Blood Count Auto Diff Today E66.9 - Obesity, unspecified, J45.909 - Unspecified asthma, uncomplicated, K21.9 - Gastro-esophageal reflux disease without esophagitis, Z68.36 - Body mass index [BMI] 36.0-36.9, adult Lipid Panel Today E66.9 - Obesity, unspecified, J45.909 - Unspecified asthma, uncomplicated, K21.9 - Gastro-esophageal reflux disease without esophagitis, Z68.36 - Body mass index [BMI] 36.0-36.9, adult Comprehensive Met. Panel Today E66.9 - Obesity, unspecified, J45.909 - Unspecified asthma, uncomplicated, K21.9 - Gastro-esophageal reflux disease without esophagitis, Z68.36 - Body mass index [BMI] 36.0-36.9, adult Vitamin B12 and Folate Today E66.9 - Obesity, unspecified, J45.909 - Unspecified asthma, uncomplicated, K21.9 - Gastro-esophageal reflux disease without esophagitis, Z68.36 - Body mass index [BMI] 36.0-36.9, adult Vitamin A Today E66.9 - Obesity, unspecified, J45.909 - Unspecified asthma, uncomplicated, K21.9 - Gastro-esophageal reflux disease without esophagitis, Z68.36 - Body mass index [BMI] 36.0-36.9, adult Ferritin Today E66.9 - Obesity, unspecified, J45.909 - Unspecified asthma, uncomplicated, K21.9 - Gastro-esophageal reflux disease without esophagitis, Z68.36 - Body mass index [BMI] 36.0-36.9, adult US abdomen comp w elastography Today E66.9 - Obesity, unspecified, J45.909 - Unspecified asthma, uncomplicated, K21.9 - Gastro-esophageal reflux disease without esophagitis, Z68.36 - Body mass index [BMI] 36.0-36.9, adult XR chest 2V Today E66.9 - Obesity, unspecified, J45.909 - Unspecified asthma, uncomplicated, K21.9 - Gastro-esophageal reflux disease without esophagitis, Z68.36 - Body mass index [BMI] 36.0-36.9, adult ECG 12 lead EKG Today E66.9 - Obesity, unspecified, J45.909 - Unspecified asthma, uncomplicated, K21.9 - Gastro-esophageal reflux disease without esophagitis, Z68.36 - Body mass index [BMI] 36.0-36.9, adult Type and Screen Today E66.9 - Obesity, unspecified, Z68.36 - Body mass index [BMI] 36.0-36.9, adult Referrals Behavioral Health Referral E66.9 - Obesity, unspecified, J45.909 - Unspecified asthma, uncomplicated, K21.9 - Gastro-esophageal reflux disease without esophagitis, Z68.36 - Body mass index [BMI] 36.0-36.9, adult Nutrition/Dietitian Referral E66.9 - Obesity, unspecified, J45.909 - Unspecified asthma, uncomplicated, K21.9 - Gastro-esophageal reflux disease without esophagitis, Z68.36 - Body mass index [BMI] 36.0-36.9, adult
[2025-01-23 10:41] VITALS: BMI 36.1
== END 2025-01-23 10:43 | disposition home or self-care (01) ==
LOC: HO.HBS 08:15
PROVIDERS: PCP Nurse Practitioner Family; Visit Provider Surgery
DX: E66.812 Obesity, class 2 (principal); E66.09 Other obesity due to excess calories; Z68.36 Body mass index [BMI] 36.0-36.9, adult
CPT/HCPCS: 99204

== ENCOUNTER → 2025-01-23 08:15 | Outpatient (BNVA) | payer OTHER, SELFPAY | PROVIDERS: PCP Nurse Practitioner Family; Visit Provider Surgery | DX: E66.9 Obesity, unspecified (principal); Z68.36 Body mass index [BMI] 36.0-36.9, adult; K21.9 Gastro-esophageal reflux disease without esophagitis; F17.210 Nicotine dependence, cigarettes, uncomplicated; Z13.89 Encounter for screening for other disorder ==

== ENCOUNTER 2025-01-27 15:22 | Outpatient (REF) | payer OTHER, SELFPAY ==
--- NOTE | ~2025-01-27 | XR_ITS ---
EXAMINATION: XR CHEST CLINICAL INFORMATION: E66.9 - Obesity, unspecified COMPARISON: None available. TECHNIQUE: 2 views of the chest were obtained. FINDINGS: Lungs: Focal patchy opacity in the region of the left costophrenic angle. Right lung appears clear. Pleura: No pleural effusion or pneumothorax. Heart/Mediastinum: Normal heart and mediastinum. Bones: Unremarkable XR/XR chest 2V IMPRESSION: Focal patchy opacity in the region of the left costophrenic angle could represent atelectasis, however, superimposed airspace disease cannot be excluded. Electronically signed by: Ashvin Howard MD 01/27/2025 04:14 PM EDT
--- NOTE | 2025-01-27 15:31 | ECG_ITS ---
Test Reason : e66.9 Blood Pressure : */* mmHG Vent. Rate : 74 BPM Atrial Rate : 74 BPM P-R Int : 120 ms QRS Dur : 90 ms QT Int : 390 ms P-R-T Axes : 58 -4 35 degrees QTcB Int : 432 ms Normal sinus rhythm Inferior infarct , age undetermined Abnormal ECG No previous ECGs available Referred By: Gabo Ireland Electronically Signed By: MAI HIGHTOWER MD
[2025-01-27 16:55] LABS: Hematocrit 37.3 % (37.0-47.0); Hemoglobin 12.1 g/dl (12.0-16.0); Imm Gran Abs Auto 0.04 X10*3/uL (0.00-0.03); Imm Gran Pct Auto 0.5 % (0.0-0.4); Lymphocytes Absolute Auto 2.0 X10*3/uL (1.2-4.9); MANUAL DIFF FLAG NO; Mean Corpuscular HGB Conc 32.4 g/dl (31.0-35.0); Mean Corpuscular Hemoglobin 25.8 pg (27.0-33.0); Mean Corpuscular Volume 79.5 fL (80.0-98.0); NRBC Abs Auto 0.000 X10*3/uL (0.0-0.012); NRBC Pct Auto 0.0 /100WBC (0.0-0.2); Platelet Count 286 X10*3/uL (160-400); Red Blood Count 4.69 X10*6/uL (4.20-5.50); White Blood Count 8.0 X10*3/uL (4.8-10.8)
[2025-01-27 17:04] LABS: Hemoglobin A1C 122.8339 umol/L; Total Hemoglobin (HGBA1C) 3196.1256 umol/L
[2025-01-27 17:07] LABS: INTERNATIONAL NORM RATIO 0.9 (0.9-1.1); Prothrombin Time 10.2 SEC (10.9-12.4)
[2025-01-27 17:10] LABS: Partial Thromboplastin Time 28.2 SEC (26.7-34.1)
[2025-01-27 17:26] LABS: Alanine Aminotransferase 8 U/L (0-31); Albumin Level 4.0 g/dL (3.5-5.0); Alkaline Phosphatase 89 U/L (39-117); Anion Gap 13 (12-20); Aspartate Amino Transferase 14 U/L (5-31); Blood Urea Nitrogen 21 mg/dL (9-16); Calcium 9.0 mg/dL (8.4-10.2); Carbon Dioxide 26 mmol/L (22-29); Chloride 108 mmol/L (96-108); Cholesterol 163 mg/dL (<200); Estimated Glomerular Filt Rate > 60; HDL Cholesterol 68 mg/dL (>40); Iron 51 mcg/dL (30-160); Percent Iron Saturation 13 % (15-50); Potassium 4.2 mmol/L (3.3-5.1); Sodium 143 mmol/L (135-145); Total Iron Binding Capacity 385 mcg/dL (228-428); Total Protein 6.7 g/dL (6.5-8.0); Triglycerides 73 mg/dL (<150); Unsaturated Iron Binding 334 ug/dL
--- OUTSIDE RECORDS SUMMARY | 2025-01-27 17:41 | XMS_ITS | Encounter Summary ---
Author Organization [employer] Address [address] [place] [address] [address] [place] [address] Care Team Providers Care Security Monitor Name Role Phone Marlyn Oneil Primary Care Provider Unavailable Maria Isabel Peguero Unavailable Unavailable Inactive/Transferred Primary Care Provider Unava ilable Encounter Details Date Type Department Care Team (Late st Contact Info) Description 12/07/2023 Orders Only [place] [facility] [address] [place] [address] Marlyn Oneil FNP Paraesophageal hernia Social History [...] 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
--- OUTSIDE RECORDS SUMMARY | 2025-01-27 17:41 | XMS_ITS | Encounter Summary ---
Author Organization [employer] Address [address] [place] [address] [address] [place] [address] Care Team Providers Care Command And Control Systems Integrator Name Role Phone Marlyn Oneil DIRECTOR CONSUMER Primary Care Provider Unavailable Maria Isabel Peguero Unavailable Unavailable Inactive/Transferred Primary Care Provider Unava ilable Encounter Details Date Type Department Care Team (Late st Contact Info) Description 12/07/2023 Orders Only [place] [facility] MED[facility] [address] [place] [address] Lora Shelby NP Cough in adult patient; [...] 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 on file Not on file documented as of this encounter Plan of Treatment Not on file documented as of this encounter Procedures Procedure Name Priority Date/Time Associated Diagnosis Comments PULMONARY FUNCTION TESTING Routine 11/27/2023 Cough in adult patient History of asthma documented in this encounter Results * Pulmonary function test (11/27/2023) [facility] ELECTRONIC TYPESETTING MACHINE OPERATOR PFT ORDERABLES Final Result documented in this encounter Visit Diagnoses Diagnosis Cough in adult patient History of asthma Personal history of other diseases of respiratory system documented in this encounter Additional Health Concerns Assessment Noted Time PHQ-9 Depression Total Score: 9 08/05/19 24 11:58 AM EDT documented as of this encounter Care Teams Command And Control Systems Integrator Relationship Specialty Start Date End Date Marlyn Oneil FNP PCP - General Family Medicine 08/01/22 07/20/24 Inactive/Transferred PCP - General 07/21/24 07/21/24 Maria Isabel Peguero Community Health Worker 09/15/22 documented as of this encounter
--- OUTSIDE RECORDS SUMMARY | 2025-01-27 17:42 | XMS_ITS | Encounter Summary ---
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
--- OUTSIDE RECORDS SUMMARY | 2025-01-27 17:42 | XMS_ITS | Encounter Summary ---
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
--- OUTSIDE RECORDS SUMMARY | 2025-01-27 17:42 | XMS_ITS | Clinical Summary ---
Author Organization [facility] Address [address] [facility] [address] [place] [address] Phone Care Team Providers Care Conflicts Analyst Name Role Phone Destin White Marlynemily Gustafson GUM MAKER Primary Care Pr ovider Allergies Active Allergy [...] 10:26 PM EDT): I have reviewed with Candelarai that there are no additional data to [...] (08/07/2021 3:35 PM EDT): Close follow-up with digital developer/respiratory therapy. Benefits of reducing weight as close as possible to ideal range for her height reviewed and strongly encouraged Assessment & Plan (05/25/2021 9:48 PM EST): Close follow-up with digital developer/respiratory therapy. Benefits of reducing weight as close as possible to ideal range for her height reviewed and strongly encouraged Assessment & Plan (07/07/2019 12:05 PM EST): Close follow-up with digital developer/respiratory therapy. Benefits of reducing weight as close as possible to ideal range for her height reviewed and strongly encouraged Assessment & Plan (05/22/2019 10:04 AM EST): Close follow-up with digital developer/respiratory therapy. Benefits of reducing weight as close as possible to ideal range for her height reviewed and strongly encouraged Assessment & Plan (03/16/2019 10:36 PM EDT): Close follow-up with digital developer/respiratory therapy. Benefits of reducing weight as close [...] C3 ACO C3 ACO C3 ACO [facility] C3 ACO Care Teams Conflicts Analyst Relationship Specialty Start Date End Date Marlyn Melendrez [facility] [place] [address] PCP - General Family Medicine 07/07/19 Additional Source Comments The information contained in this document represents components of the legal health record. It is not the complete legal health record.[facility]
--- OUTSIDE RECORDS SUMMARY | 2025-01-27 17:42 | XMS_ITS | Encounter Summary ---
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
--- OUTSIDE RECORDS SUMMARY | 2025-01-27 17:42 | XMS_ITS | Encounter Summary ---
Author Organization [employer] Address [address] [place] [address] [address] [place] [address] Care Team Providers Care Restoration Silversmith Name Role Phone Marlyn Oneil Primary Care Provider Unavailable Maria Isabel Peguero Unavailable Unavailable Inactive/Transferred Primary Care Provider Unava ilable Reason for Visit * Reason Comments Med Change Request Encounter Details Date Type Department Care Team (Late st Contact Info) Description 03/12/2023 Refill [place] [facility] [address] [place] [address] Marlyn Oneil FNP Chronic fatigue; Moderate episode [...] 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
--- OUTSIDE RECORDS SUMMARY | 2025-01-27 17:42 | XMS_ITS | Clinical Summary ---
Author Organization [facility] Address [address] [place] [address] Care Team Providers Care Film Historian Name Role Phone Lily Corbett MD Primary [...] 2 (two) times a day. 0 Active Sppzsxv-Dklawqgck-Hp tamin D (CALCIUM 500 PO) Take by mouth daily. 0 Acti ve nitrofurantoin (MACRODANTIN) 50 MG capsule Take 50 mg by mouth daily. 0 Active cholecalciferol (VITAMIN D3) 1000 UNITS tablet Take 1,000 Units by mouth daily. 0 Active [place]-3 Fatty Acids (FISH OIL PO) Take 1,000 [...] age to complete this topic Care Teams Film Historian Relationship Specialty Start Date End Date Lily Corbett MD [address] [facility] [place] [phone] PCP - General Family Medicine 01/07/17
--- OUTSIDE RECORDS SUMMARY | 2025-01-27 17:42 | XMS_ITS | Clinical Summary ---
Author Organization [employer] Address [address] [place] [address] [address] [place] [address] Care Team Providers Care Rn Acute Name Role Phone Maria Isabel Peguero Unavailable [...] lungs. See other diagnoses [facility]. 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 on file Not [...] Laterality Modality Breast Left Ultrasound Marlyn Oneil SENIOR SALES MANAGER IMG US PROCEDURES Jennifer l Result * [...] AM EDT Performed at: 01 - [facility] [address] [id number] Workforce Specialist: Lavinia Muniz MD, Phone: [phone] Marlyn Oneil SENIOR SALES MANAGER LAB BLOOD ORDERABLES F inal Result [facility] 1 * POCT glycosylated hemoglobin (Hgb A1c) (12/11/2023 11:39 AM EDT) Hemoglobin A1C 5.8 4.0 - 6.0 % Blood Capillary blood specimen / Unknown 12/11/2023 11:39 AM EDT Marlyn Oneil SENIOR SALES MANAGER POINT OF CARE TEST ENT ER/EDIT ORDERABLES Final Result * PAP, LB with CT/GC and HPV (10/23/2022 3:45 PM EDT) PAP, LB WITH CT/GC AND HPV Patient Name: TIA GUALLPA [facility] Comment: Patient : 1965 (Age: 57) Lab Collection Date: 10/23/2022 Accession Date: 10/24/2022 Sign Out Date: 11/14/2022 Tissue Source: 1: THINPREP WOOD BARKER PAP TEST, VAGINAL: Final Diagnosis: NEGATIVE FOR INTRAEPITHELIAL LESION OR MALIGNANCY. Satisfactory for evaluation. Procedures/Addenda: Human Papilloma Virus, High-Risk (Any Dx) Status: Signed Out Interpretation: Negative Methodology: [employer] Aptima HPV mRNA assay (Nucleic Acid Amplification Test, NAAT). Clinical History: Date of Last Menstrual Period: not available Menstrual History: not available Contraceptive History: not available Ancillary Testing: HPV (any dx) Chlamydia/GC Case imaged by the ThinPrep Imaging System with manual rescreening or review. Performed at [facility] department of Cytology, Graciela Leonard MA Clinical History (other): Z12.4 HISTORY OF PARTIAL HYSTERECTOMY; UNABLE TO VISUALIZE CERVIX. Phone #: [phone], On-Call Pathologist: [id number] Testing performed or reported by [facility], a Service of [facility], [address] [place] [address] Whitt, MD, Ld Teacher [facility]# [id number] 10/23/2022 3:45 PM EDT 10/24/2022 12:41 AM EDT Marlyn Oneil SENIOR SALES MANAGER LAB CYTOLOGY ORDERABLE S Final Result [facility] [address] [place] [address] * HIV-1 antibody, EIA (04/14/2018) External HIV-1 Antibody Negative Blood Venous blood specimen / Unknown Historical Provider LAB BLOOD ORDERABLES Jennifer l Result * (ABNORMAL) Colonoscopy (01/01/2015) Colonoscopy Abnormal( A) Normal Comment:Polyp, diverticulosi s, internal hemorrhoids Historical Provider HEALTH MAINTENANCE Final Result from Last 3 Months or Most Recently Relevant to Health Maintenance Insurance [facility] C3 GENERIC TPL Care Teams Rn Acute Relationship Specialty Start Date End Date Maria Isabel Peguero Community Health Worker 09/15/22
--- OUTSIDE RECORDS SUMMARY | 2025-01-27 17:42 | XMS_ITS | Encounter Summary ---
Author Organization [employer] Address [address] [place] [address] [address]t [place] [address] Care Team Providers Care Master Automotive Technician Name Role Phone Marlyn Oneil Primary Care Provider Unavailable Maria Isabel Peguero Unavailable Unavailable Inactive/Transferred Primary Care Provider Unava ilable Reason for Visit * Reason Comments Med Refill Encounter Details Date Type Department Care Team (Late st Contact Info) Description 12/01/2023 Refill [place] [facility] [address] [place] [address] Marlyn Oneil FNP Uncomplicated severe persistent asthma [...] the past 12 months, has t he [email or web address], gas, oil or water company threatened to [...] 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 * Telephone Encounter - ELINA eGorge - 12/02/2023 2:10 PM EDT Already sent. documented in this encounter Plan of Treatment Not on file documented as of this encounter Visit Diagnoses Diagnosis Uncomplicated severe persistent asthma documented in this encounter Additional Health Concerns Assessment Noted Time PHQ-9 Depression Total Score: 9 08/05/19 24 11:58 AM EDT documented as of this encounter Care Teams Master Automotive Technician Relationship Specialty Start Date End Date Marlyn Oneil FNP PCP - General Family Medicine 08/01/22 07/20/24 Inactive/Transferred PCP - General 07/21/24 07/21/24 Maria Isabel Peguero Community Health Worker 09/15/22 documented as of this encounter
[2025-01-27 17:51] LABS: Ferritin 8 ng/mL (10-250)
[2025-01-27 17:59] LABS: Folate 11.3 ng/mL (> or = 4.0); Vitamin B12 363 pg/mL (200-900)
== END 2025-01-27 15:23 | disposition home or self-care (01) ==
LOC: HO.XRAY 15:22
PROVIDERS: Absent Provider Orthopaedic Surgery Foot and Ankle Surgery; Visit Provider Surgery
DX: Z01.818 Encounter for other preprocedural examination (principal); E66.9 Obesity, unspecified; K21.9 Gastro-esophageal reflux disease without esophagitis; J45.909 Unspecified asthma, uncomplicated; Z68.36 Body mass index [BMI] 36.0-36.9, adult
CPT/HCPCS: 36415; 71046; 80053; 80061; 82306; 82607; 82728; 82746; 83036; 83525; 83540; 84425; 84443; 84590; 84630; 85025; 85610; 85730; 86140; 86850; 86900; 86901; 93005

== ENCOUNTER → 2025-01-27 15:31 | Outpatient (BNV) | payer OTHER, SELFPAY | PROVIDERS: Absent Provider Orthopaedic Surgery Foot and Ankle Surgery; Visit Provider Internal Medicine Cardiovascular Disease | DX: R94.31 Abnormal electrocardiogram [ECG] [EKG] (principal); E66.9 Obesity, unspecified | CPT/HCPCS: 93010 ==

== ENCOUNTER → 2025-01-27 15:52 | Outpatient (BNV) | payer OTHER, SELFPAY | PROVIDERS: Absent Provider Orthopaedic Surgery Foot and Ankle Surgery; Visit Provider Radiology Body Imaging | DX: R91.8 Other nonspecific abnormal finding of lung field (principal) | CPT/HCPCS: 71046 ==

== ENCOUNTER 2025-02-02 09:27 | Day surgery (SDC) | payer OTHER, SELFPAY ==
--- OUTSIDE RECORDS SUMMARY | 2025-01-30 09:58 | XMS_ITS | Clinical Summary ---
Author Organization [employer] Address [address] [place] [address] [address]t [place] [address] Care Team Providers Care Continuous Pickling Line Pickler Helper Name Role Phone Maria Isabel Peguero Unavailable [...] lungs. See other diagnoses also addressed at [facility]. 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 on file Not [...] Laterality Modality Breast Left Ultrasound Marlyn Oneil HOME ADMINISTRATOR IMG US PROCEDURES Jennifer l Result * [...] AM EDT Performed at: 01 - [facility] [address] [id number] Mobile Electronics Installer: Lavinia Muniz MD, Phone: [phone] Marlyn Oneil HOME ADMINISTRATOR LAB BLOOD ORDERABLES F inal Result [facility] 1 * POCT glycosylated hemoglobin (Hgb A1c) (12/11/2023 11:39 AM EDT) Hemoglobin A1C 5.8 4.0 - 6.0 % Blood Capillary blood specimen / Unknown 12/11/2023 11:39 AM EDT Marlyn Oneil HOME ADMINISTRATOR POINT OF CARE TEST ENT ER/EDIT ORDERABLES Final Result * PAP, LB with CT/GC and HPV (10/23/2022 3:45 PM EDT) PAP, LB WITH CT/GC AND HPV Patient Name: TIA GUALLPA [facility] Comment: Patient : 1965 (Age: 57) Lab Collection Date: 10/23/2022 Accession Date: 10/24/2022 Sign Out Date: 11/14/2022 Tissue Source: 1: THINPREP FREEZING MACHINE OPERATOR PAP TEST, VAGINAL: Final Diagnosis: NEGATIVE FOR INTRAEPITHELIAL LESION OR MALIGNANCY. Satisfactory for evaluation. Procedures/Addenda: Human Papilloma Virus, High-Risk (Any Dx) Status: Signed Out Interpretation: Negative Methodology: [employer] Aptima HPV mRNA assay (Nucleic Acid Amplification Test, NAAT). Clinical History: Date of Last Menstrual Period: not available Menstrual History: not available Contraceptive History: not available Ancillary Testing: HPV (any dx) Chlamydia/GC Case imaged by the ThinPrep Imaging System with manual rescreening or review. Performed at [facility] department of Cytology, Graciela Leonard MA Clinical History (other): Z12.4 HISTORY OF PARTIAL HYSTERECTOMY; UNABLE TO VISUALIZE CERVIX. Phone #: [phone], On-Call Pathologist: [id number] Testing performed or reported by [facility], a Service of [facility], [address] [place] [address] Whitt, MD, Manager Of Health [facility]# [id number] 10/23/2022 3:45 PM EDT 10/24/2022 12:41 AM EDT Marlyn Oneil HOME ADMINISTRATOR LAB CYTOLOGY ORDERABLE S Final Result [facility] [address] [place] [address] * HIV-1 antibody, EIA (04/14/2018) External HIV-1 Antibody Negative Blood Venous blood specimen / Unknown Historical Provider LAB BLOOD ORDERABLES Jennifer l Result * (ABNORMAL) Colonoscopy (01/01/2015) Colonoscopy Abnormal( A) Normal Comment:Polyp, diverticulosi s, internal hemorrhoids Historical Provider HEALTH MAINTENANCE Final Result from Last 3 Months or Most Recently Relevant to Health Maintenance Insurance [facility] C3 GENERIC TPL Care Teams Continuous Pickling Line Pickler Helper Relationship Specialty Start Date End Date Maria Isabel Peguero Community Health Worker 09/15/22
--- OUTSIDE RECORDS SUMMARY | 2025-01-30 09:58 | XMS_ITS | Encounter Summary ---
Author Organization [employer] Address [address] [place] [address] 7[address] [place] [address] Care Team Providers Care Creel Clerk Name Role Phone Marlyn Oneil Primary Care Provider Unavailable Maria Isabel Peguero Unavailable Unavailable Inactive/Transferred Primary Care Provider Unava ilable Reason for Visit * Reason Comments Med Change Request Encounter Details Date Type Department Care Team (Late st Contact Info) Description 03/12/2023 Refill [place] [facility] [address] [place] [address] Marlyn Oneil FNP Chronic fatigue; Moderate episode [...] 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
--- OUTSIDE RECORDS SUMMARY | 2025-01-30 09:58 | XMS_ITS | Clinical Summary ---
Author Organization [facility] Address [address] [facility] [address] [place] [address] Phone Care Team Providers Care Machine Stonecutter Name Role Phone Destin White Marlynemily Gustafson ROLL RECLAIMER Primary Care Pr ovider Allergies Active Allergy [...] (08/07/2021 3:35 PM EDT): Close follow-up with computer analyst supervisor/respiratory therapy. Benefits of reducing weight as close as possible to ideal range for her height reviewed and strongly encouraged Assessment & Plan (05/25/2021 9:48 PM EST): Close follow-up with computer analyst supervisor/respiratory therapy. Benefits of reducing weight as close as possible to ideal range for her height reviewed and strongly encouraged Assessment & Plan (07/07/2019 12:05 PM EST): Close follow-up with computer analyst supervisor/respiratory therapy. Benefits of reducing weight as close as possible to ideal range for her height reviewed and strongly encouraged Assessment & Plan (05/22/2019 10:04 AM EST): Close follow-up with computer analyst supervisor/respiratory therapy. Benefits of reducing weight as close as possible to ideal range for her height reviewed and strongly encouraged Assessment & Plan (03/16/2019 10:36 PM EDT): Close follow-up with computer analyst supervisor/respiratory therapy. Benefits of reducing weight as close [...] ACO C3 ACO C3 ACO C[address] [facility] C3 ACO Care Teams Machine Stonecutter Relationship Specialty Start Date End Date Marlyn Melendrez [facility] [place] [address] PCP - General Family Medicine 07/07/19 Additional Source Comments The information contained in this document represents components of the legal health record. It is not the complete legal health record.[facility]
--- OUTSIDE RECORDS SUMMARY | 2025-01-30 09:58 | XMS_ITS | Clinical Summary ---
Author Organization [facility] Address [address] [place] [address] Care Team Providers Care Landscape Contractor Name Role Phone Lily Corbett MD Primary [...] 2 (two) times a day. 0 Active Oytpplx-Mfegqhfje-Me tamin D (CALCIUM 500 PO) Take by mouth daily. 0 Acti ve nitrofurantoin (MACRODANTIN) 50 MG capsule Take 50 mg by mouth daily. 0 Active cholecalciferol (VITAMIN D3) 1000 UNITS tablet Take 1,000 Units by mouth daily. 0 Active Silver Star-3 Fatty Acids (FISH OIL PO) Take 1,000 [...] age to complete this topic Care Teams Landscape Contractor Relationship Specialty Start Date End Date Lily Corbett MD [address] [facility] [place] [id number] PCP - General Family Medicine 01/07/17
--- OUTSIDE RECORDS SUMMARY | 2025-01-30 09:58 | XMS_ITS | Encounter Summary ---
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
--- OUTSIDE RECORDS SUMMARY | 2025-01-30 09:58 | XMS_ITS | Encounter Summary ---
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
--- OUTSIDE RECORDS SUMMARY | 2025-01-30 09:58 | XMS_ITS | Encounter Summary ---
Author Organization [employer] Address [address] [place] [address] 7t [place] [address] Care Team Providers Care Professor Of Latin American Studies Name Role Phone Marlyn Oneil GEOSPATIAL TECHNOLOGIST Primary Care Provider Unavailable Maria Isabel Peguero Unavailable Unavailable Inactive/Transferred Primary Care Provider Unava ilable Encounter Details Date Type Department Care Team (Late st Contact Info) Description 12/07/2023 Orders Only [place] [facility] [address] [place] [address] Lora Shelby NP Cough in adult patient; [...] 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 DRUM BUILDER PFT ORDERABLES Final Result documented in this encounter Visit Diagnoses Diagnosis Cough in adult patient History of asthma Personal history of other diseases of respiratory system documented in this encounter Additional Health Concerns Assessment Noted Time PHQ-9 Depression Total Score: 9 08/05/19 24 11:58 AM EDT documented as of this encounter Care Teams Professor Of Latin American Studies Relationship Specialty Start Date End Date Marlyn Oneil FNP PCP - General Family Medicine 08/01/22 07/20/24 Inactive/Transferred PCP - General 07/21/24 07/21/24 Maria sIabel Peguero Community Health Worker 09/15/22 documented as of this encounter
--- OUTSIDE RECORDS SUMMARY | 2025-01-30 09:58 | XMS_ITS | Encounter Summary ---
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
--- OUTSIDE RECORDS SUMMARY | 2025-01-30 09:58 | XMS_ITS | Encounter Summary ---
Author Organization [employer] Address [address] [place] [address] 7[address] [place] [address] Care Team Providers Care Administrative Support Assistant Name Role Phone Marlyn Oneil Primary Care Provider Unavailable Maria Isabel Peguero Unavailable Unavailable Inactive/Transferred Primary Care Provider Unava ilable Reason for Visit * Reason Comments Med Change Request Encounter Details Date Type Department Care Team (Late st Contact Info) Description 03/12/2023 Refill [place] [facility] [address] [place] [address] Marlyn Oneil FNP Chronic fatigue; Moderate episode [...] 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
--- OUTSIDE RECORDS SUMMARY | 2025-01-30 09:58 | XMS_ITS | Encounter Summary ---
Author Organization [employer] Address [address] [place] [address] [address] [place] [address] Care Team Providers Care Model Dresser Name Role Phone Marlyn Oneil Primary Care Provider Unavailable Maria Isabel Peguero Unavailable Unavailable Inactive/Transferred Primary Care Provider Unava ilable Reason for Visit * Reason Comments Med Refill Encounter Details Date Type Department Care Team (Late st Contact Info) Description 12/01/2023 Refill [place] [facility] [address] [place] [address] Marlyn Oneil FNP Uncomplicated severe persistent asthma [...] the past 12 months, has t he [employer], gas, oil or water company threatened to [...] 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
--- NOTE | 2025-01-31 14:19 | HO.ANESPROP2 ---
Documented by User: Lottie Ureña NP 01/31/25 14:23 HPI - Anesthesia Eval Consult details Narrative: 59yo F for Lap Band Removal Laparosopic, Upper Endoscopy PMFSH Active Problems Active Problems: All Active Problems Vitamin B12 deficiency (Acute) Vitamin D deficiency (Acute) Osteoarthritis of patellofemoral joints, bilateral (Acute) DJD (degenerative joint disease) (Acute) GERD (gastroesophageal reflux disease) (Acute) Fibromyalgia (Acute) Asthma (Acute) BMI 36.0-36.9,adult (Acute) Obesity (Acute) Past Medical History Medical History Malignant hyperthermia DJD (degenerative joint disease) GERD (gastroesophageal reflux disease) Fibromyalgia Asthma BMI 36.0-36.9,adult Obesity Family History Family History Mother Alzheimer dementia Father COPD (chronic obstructive pulmonary disease) Asthma Hypertension Daughter Obesity Son Special educational needs Obesity Surgical History Surgical History Hx of hysterectomy Hx of foot surgery Hx of carpal tunnel repair Hx of hernia repair Hx of section Hx of plastic surgery Status post gastric banding surgery Social History Social History Alcohol intake: never Patient Tobacco Use Status: Current someday Tobacco user Tobacco use type: Cigarette Cigarettes Per Day: 6 Advance Directives on File: No FDLMP: n/a Meds Allergies Allergy/AdvReac Type Severity Reaction Status Date / Time succinylcholine Allergy Severe Anaphylaxis Verified 01/23/25 10:04 aspirin Allergy Intermediate throat Verified 01/23/25 10:04 burning sulfamethoxazole (From Allergy Intermediate Blister Verified 01/23/25 10:04 Bactrim) trimethoprim (From Bactrim) Allergy Intermediate Blister Verified 01/23/25 10:04 Home Medications ?Medication ?Instructions ?Recorded ?Confirmed ?Last Taken ?Type albuterol sulfate 90 mcg/actuation 2 puff inhalation Q6H PRN wheezing 12/04/23 01/31/25 Unknown History aerosol inhaler (Ventolin HFA) duloxetine 30 mg capsule,delayed 30 mg PO BID 12/04/23 01/31/25 Unknown History release omeprazole 20 mg capsule,delayed 20 mg PO BID 12/04/23 01/31/25 Unknown History release fluticasone 100 mcg-salmeterol 50 1 inh inhalation BID 01/23/25 01/31/25 Unknown History mcg/dose blistr powdr for inhalation (Advair Diskus) Exam Pertinent Lab Results Pertinent Lab Results: Laboratory Tests 01/27/25 15:45 Blood Type O Positive Antibody Screen NEGATIVE Laboratory Tests 01/27/25 01/27/25 15:33 15:52 WBC 8.0 Hgb 12.1 Hct 37.3 Plt Count 286 Sodium 143 Potassium 4.2 Chloride 108 Carbon Dioxide 26 BUN 21 H Creatinine 0.82 Narrative Narrative: EKG 01/2025 Vent. Rate : 74 BPM Atrial Rate : 74 BPM P-R Int : 120 ms QRS Dur : 90 ms QT Int : 390 ms P-R-T Axes : 58 -4 35 degrees QTcB Int : 432 ms Normal sinus rhythm Inferior infarct , age undetermined Abnormal ECG No change from EKG 2022 [facility] Health Assessment and Plan Assessment Anesthesia Assessment: Chart Reviewed Documented by User: Debra Agustin MD 02/02/25 14:18 [facility] Active Problems Active Problems: All Active Problems Vitamin B12 deficiency (Acute) Vitamin D deficiency (Acute) Osteoarthritis of patellofemoral joints, bilateral (Acute) DJD (degenerative joint disease) (Acute) GERD (gastroesophageal reflux disease) (Acute) Fibromyalgia (Acute) Asthma (Acute) BMI 36.0-36.9,adult (Acute) Obesity (Acute) Probable history of malignant hyperthermia Past Medical History Medical History Malignant hyperthermia DJD (degenerative joint disease) GERD (gastroesophageal reflux disease) Fibromyalgia Asthma BMI 36.0-36.9,adult Obesity Functional capacity: uses cane/walker Family History Family History Mother Alzheimer dementia Father COPD (chronic obstructive pulmonary disease) Asthma Hypertension Daughter Obesity Son Special educational needs Obesity Surgical History Surgical History Hx of hysterectomy Hx of foot surgery Hx of carpal tunnel repair Hx of hernia repair Hx of section Hx of plastic surgery Status post gastric banding surgery History of Problems with Anesthesia: No Social History Social History Alcohol intake: never Patient Tobacco Use Status: Current someday Tobacco user Tobacco use type: Cigarette Cigarettes Per Day: 6 Advance Directives on File: No FDLMP: n/a Meds Allergies Allergy/AdvReac Type Severity Reaction Status Date / Time succinylcholine Allergy Severe Anaphylaxis Verified 01/23/25 10:04 aspirin Allergy Intermediate throat Verified 01/23/25 10:04 burning sulfamethoxazole (From Allergy Intermediate Blister Verified 01/23/25 10:04 Bactrim) trimethoprim (From Bactrim) Allergy Intermediate Blister Verified 01/23/25 10:04 Home Medications ?Medication ?Instructions ?Recorded ?Confirmed ?Last Taken ?Type albuterol sulfate 90 mcg/actuation 2 puff inhalation Q6H PRN wheezing 12/04/23 01/31/25 Unknown History aerosol inhaler (Ventolin HFA) duloxetine 30 mg capsule,delayed 30 mg PO BID 12/04/23 01/31/25 Unknown History release omeprazole 20 mg capsule,delayed 20 mg PO BID 12/04/23 01/31/25 Unknown History release fluticasone 100 mcg-salmeterol 50 1 inh inhalation BID 01/23/25 01/31/25 Unknown History mcg/dose blistr powdr for inhalation (Advair Diskus) Exam Airway Mallampati Class: II TM Dist: >3cm Neck ROM: Full Denture: Lower Partial: Upper Loose/Missing/Broken Teeth: Yes, Upper and Lower Heart: RRR Lungs: CTA Assessment and Plan Assessment Anesthesia Assessment: Anesthesia Plan Discussed Final Anesthetic Review History of Problems with Anesthesia: No NPO: Yes ASA Class: II Final Preanesthetic Review: Meds/Allgs Chart Reviewed, Consent Obtained/Reviewed and Anes Risks/Benef Reviewed Patient Risk: Low Procedure Risk: Intermediate Anesthetic Plan Anesthetic Plan: GA Disposition: Standard PACU
[2025-01-31 15:13] VITALS: BMI 36.1
[2025-02-02] VITALS (8 sets, daily range): BP systolic 100–123; BP diastolic 51–72; PULSE 57–74; RESP 12–16; TEMP 36.3–36.7; O2SAT 93–99; BMI 36.2
[2025-02-02] MEDS: Aprepitant 32 MG/4.4 ML VIAL IVPUSH (10:25)
[2025-02-02] MEDS: Lactated Ringers 1,000 ML 100 ML IVCONT (10:25)
[2025-02-02] MEDS: Albuterol Sulfate (0.083%) 2.5 MG/3 ML VIAL.NEB INHALE (13:14)
--- NOTE | 2025-02-02 13:30 | MHC.SHP ---
Pre-Procedural Eval Section A - 24 Hr Update-Section A only Date of Service: 02/02/25 The patient is an INPATIENT: No The patient has been examined within 24 hours of the surgical procedure. The History & Physical has been completed within 30 days and I have reviewed it.: Yes Section B - Complete if H&P > 30 days Chief Complaint: Other complications of gastric band procedure Relevant Family History (Specify if Yes): No Relevant Social History: None Present Medications: None Medical History: No relevant PMH History of Previous Operations: Relevant previous surgery/procedure and date(s) (Lap band by Dr. Fink) Allergies: Allergies Allergy/AdvReac Type Severity Reaction Status Date / Time succinylcholine Allergy Severe Anaphylaxis Verified 01/23/25 10:04 aspirin Allergy Intermediate throat Verified 01/23/25 10:04 burning sulfamethoxazole (From Allergy Intermediate Blister Verified 01/23/25 10:04 Bactrim) trimethoprim (From Bactrim) Allergy Intermediate Blister Verified 01/23/25 10:04 Review of Systems Sugical H&P ROS: Negative: Constitution, Cardiovascular, Respiratory, Neurological, Psychiatric, Hem-Onc, Allergic/Immunologic, Gastrointestinal, Genitourinary, Musculoskeletal, Integumentary, Endocrine and Eyes/Ears/Nose/Throat Exam Surgical H&P Exam: Normal: HEENT, Normal: Heart, Normal: Lungs, Normal: Extremities, Normal: Abdomen, Normal: Skin and Normal: Neurological Plan Diagnosis/Plan: Unchanged I have reviewed the history and physical and performed a pertinent physical examination on my patient. No changes have occurred unless specified. Time Spent With Patient Time: Total time managing care of this patient today ____ minutes.
--- NOTE | 2025-02-02 13:31 | P.BOP_ITS ---
Brief Operative Note Date of Service: 02/02/25 Pre-op diagnosis: GERD, s/p lap band Post-op diagnosis: same Procedure: PROCEDURE: Esophago-gastroscopy, laparoscopic lysis of adhesions, laparoscopic band removal and accessories INDICATIONS: This is a 59 year-old female with a BMI of 36.2 kg/m2 and associated comorbid conditions as described previously. The patient has been experiencing severe GERD. As a result, the patient was electively scheduled for laparoscopic, possibly open gastric band removal. The risks and complications of the procedure were discussed with the patient in advance, particularly the possibility of ; pulmonary embolism; infection, gastric leak, bleeding; GERD; cardiac, pulmonary, or renal complications. The patient understood all the risks, and was in agreement to proceed with surgery. DESCRIPTION OF PROCEDURE: After informed consent was obtained from the patient, the patient was given preoperative antibiotics, and was transferred to the operating room. After successful induction of general anesthesia, pneumatic compressive devices were placed on both lower extremities. An upper endoscopy was performed next. The oropharynx and esophagus appeared to be within normal limits. There was no diaphragmatic hernia present. The stomach was entered. Then after all fluid and air were suctioned and the stomach was fully decompressed, the scope was withdrawn and secured in the mid esophagus. The patient was then prepped and draped in the usual sterile manner, and abdominal access was established at the right upper quadrant with the Prem technique. A 12 mm blunt port was inserted, and the abdomen was insufflated with CO2 to a pressure of 15 mmHg. Under direct visualization, additional ports were placed, specifically two 5 mm Versi-step ports to the left upper quadrant, and a 5 mm Versi-Step port to the right upper quadrant. 1% lidocained plan was used to infiltrate all port sites as well as all fascia defects. Following that, the patient was placed in a steep reverse Trendelenburg position. An additional 5 mm port was placed to the right flank for the Mediflex retractor that was used to retract the left lobe of the liver. There were adhesions in the abdomen from previous lap band involving the stomach and the undersurface of the left lobe of the liver. Those were lysed completely with the ultrasonic device. The patient has a lap gastric band. It was identified and using the Thunderbeat, the capsule was opened and the band was freed from surrounding tissues. Once it was adequately mobile, it was cut and was removed from the Prem port along with the intra-abdominal portion of the tubing system. ?An upper endoscopy was performed. There was no narrowing at the GE junction. The scope was easily advanced all the way to the pylorus which was clearly visualized. There was no narrowing anywhere. There was no evidence of ischemia, bleeding or dehiscence. At that point the gastroscope was withdrawn from the patient?s mouth while we were decompressing the bowel and the stomach from any remaining air. There was no bleeding from the liver, spleen, or short gastric vessels. The Mediflex retractor was removed, and the undersurface of the liver was inspected and there was no bleeding. The patient was placed in supine position. The band's port was removed from a separate incision as it was located near the umbilicus. Using cautery the subcutaneous tissues were divided until the port was identified. This particular port is not secured with sutures but with hooks. The remaining tubing system was delivered first and then slowly the four hooks were detached from the fascia and the port with tubing system were retrieved intact. I closed the fascial defect of the 12 mm port site with a figure of eight #1 Polysorb suture. Then 30cc Ropivacaine plain with 10 mg of Dexamethasone were used to infiltrate the fascial closure as well as all skin incisions. At this point, the abdomen was deflated, all ports were removed under direct vision, and no bleeding was noted from any of the port sites. The skin incisions were irrigated with saline and were closed with 4-0 absorbable monofilament sutures. Steri-Strips and OpSites were used to cover all incisions. The patient was e xtubated and was transferred in stable condition to the recovery room for further care. I was present and performed all rachel parts of the procedure. Ms. River was the mate first. There were no residents to assist with this case. Poli Ireland MD, PhD, FACS Surgeon: Gabo Ireland MD Anesthesia: GETA, local and other (TAP block) Was an Mechanical Engineering Lecturer used for this Procedure?: No Mechanical Engineering Lecturer: Lora River Estimated blood loss (mL): 10 IV fluids (mL): 1,000 Urine output (mL): 0 (No Saab to record output) Pathology: other (Lap band, tubing and port) Condition: stable Disposition: PACU
== END 2025-02-02 17:01 | disposition home or self-care (01) ==
PROVIDERS: Visit Provider Surgery
PROC: (CPT 43772; principal; 2025-02-02 14:10)
DX: K95.09 Other complications of gastric band procedure (principal); K21.9 Gastro-esophageal reflux disease without esophagitis; E66.9 Obesity, unspecified; Z68.36 Body mass index [BMI] 36.0-36.9, adult; J45.909 Unspecified asthma, uncomplicated; M79.7 Fibromyalgia; M19.90 Unspecified osteoarthritis, unspecified site; Z79.899 Other long term (current) drug therapy; Z88.6 Allergy status to analgesic agent; Z88.2 Allergy status to sulfonamides; Z98.890 Other specified postprocedural states; F17.210 Nicotine dependence, cigarettes, uncomplicated
CPT/HCPCS: 43772; 86850; 86900; 86901; 88300; C9145; J0131; J0690; J1100; J2003; J2250; J2371; J2405; J2704; J2795; J3010

== ENCOUNTER → 2025-02-02 09:27 | Outpatient (BNV) | payer OTHER, SELFPAY | PROVIDERS: Visit Provider Surgery | DX: K95.09 Other complications of gastric band procedure (principal) | CPT/HCPCS: 43774 ==

== ENCOUNTER 2025-02-08 09:25 | Outpatient (AMB) | payer OTHER, SELFPAY ==
--- NOTE | 2025-02-08 09:32 | MHC.OFFVISWM ---
VS Expanded 02/08/25 09:42 BP 121/79 Blood Pressure Location Rt brachial Blood Pressure Position Sitting Pulse 85 Pulse Source Pulse Oximeter Temp 97.6 F Temperature Source Temporal Artery Scan Pulse Oximetry 95 Oxygen Delivery Method Room Air Height 5 ft 2 in Weight 197 lb 6.4 oz BMI 36.1 Body Fat % 40.9 Body Fat Mass 80.6 Fat Free Mass 116.6 Visceral Fat Rating 12.0 Body Water % 41.8 Body Water Mass 82.4 Muscle Mass/Score 110.6 Basal Metabolic Rate/Score 1,601 Intake Visit Reasons: (OV) s/p Lap Band Removal 02/02/25 Allergies succinylcholine Allergy (Severe, Verified 02/08/25 09:43) Anaphylaxis aspirin Allergy (Intermediate, Verified 02/08/25 09:43) throat burning sulfamethoxazole (From Bactrim) Allergy (Intermediate, Verified 02/08/25 09:43) Blister trimethoprim (From Bactrim) Allergy (Intermediate, Verified 02/08/25 09:43) Blister Medication List - Last Reconciled 02/08/25 by RAJIV Christiansen albuterol sulfate 90 mcg/actuation (Ventolin HFA) 2 puffs inhalation Q6H PRN cholecalciferol (vitamin D3) 125 mcg PO DAILY duloxetine 30 mg PO BID fluticasone propion-salmeterol 100-50 mcg/dose (Advair Diskus) 1 inh inhalation BID mecobalamin (vitamin B12) 1,000 mcg sublingual DAILY omeprazole 20 mg PO BID zinc gluconate 30 mg PO DAILY HPI Comments Details: Pt is s/p lap band removal 6d ago, 02/02/2025. No pain. No nausea. She has resumed her meal plan of bars, shakes, and 1 meal per day. Premier 4oz/4oz x 2 and 1 bar at night. She is happy to report she has stopped smoking. She also has excess skin of upper arms and is interested in brachioplasty. She previously had a panniculectomy. Her mom has 24 hour care provided by pt and she is concerned she damaged her incision when she was lifting her mom. [facility] Medical History Malignant hyperthermia DJD (degenerative joint disease) GERD (gastroesophageal reflux disease) Fibromyalgia Asthma BMI 36.0-36.9,adult Obesity Surgical History (Updated 02/08/25 @ 10:13 by RAJIV Christiansen) History of removal of laparoscopic gastric banding device Hx of hysterectomy Hx of foot surgery Hx of carpal tunnel repair Hx of hernia repair Hx of section Hx of plastic surgery Status post gastric banding surgery Family History Mother Alzheimer dementia Father COPD (chronic obstructive pulmonary disease) Asthma Hypertension Daughter Obesity Son Special educational needs Obesity Social History Alcohol intake: never Patient Tobacco Use Status: Current someday Tobacco user Tobacco use type: Cigarette Cigarettes Per Day: 6 Physical Exam Vital Signs: Last Vital Signs Temp 97.6 F 02/08/25 09:42 Pulse 85 02/08/25 09:42 BP 121/79 02/08/25 09:42 Pulse Ox 95 02/08/25 09:42 Oxygen Delivery Method Room Air 02/08/25 09:42 BMI result Body Mass Index 36.1 Const General: cooperative, comfortable and no acute distress Orientation/consciousness: patient oriented x3 GI Other: soft, nontender, nondistended, steri-strips c/d/i for all incisions except previous lap band port site- small open area at right lateral aspect but remainder of incision looks clean without complete dehiscence Neuro General: patient oriented x3 Assessment & Plan Assessment & Plan (1) Obesity: Code(s): E66.9 - Obesity, unspecified Category: Medical Qualifiers: Obesity type: due to excess calories Obesity classification: adult class 2 (BMI 35 - 39.9) Serious obesity comorbidity presence: without serious comorbidity Body mass index: BMI 36.0-36.9 Qualified Code(s): E66.812 - Obesity, class 2; E66.09 - Other obesity due to excess calories; Z68.36 - Body mass index [BMI] 36.0-36.9, adult (2) Hx of laparoscopic gastric banding: Code(s): Z98.84 - Bariatric surgery status Category: Medical Plan Reminded pt to try to avoid heavy lifting until 6w postop; try to get family help for lifting her mom. She will continue current meal plan per Dr. Sherman. She has been instructed she can resume exercise although she has not done so yet. She is interested in brachioplasty and we discussed BMI requirements for this (147lbs). RTC Mar 7, 15min phone visit.
[2025-02-08 09:42] VITALS: BP 121/79; PULSE 85; TEMP 36.4; O2SAT 95; BMI 36.1
--- OUTSIDE RECORDS SUMMARY | 2025-02-08 11:14 | XMS_ITS | Encounter Summary ---
Author Organization [employer] Address [address] [place] [address] [address] [place] [address] Care Team Providers Care Tool Supervisor Name Role Phone Marlyn Oneli Primary Care Provider Unavailable Maria Isabel Peguero Unavailable Unavailable Inactive/Transferred Primary Care Provider Unava ilable Reason for Visit * Reason Comments Med Change Request Encounter Details Date Type Department Care Team (Late st Contact Info) Description 03/12/2023 Refill Dinah [facility] [address] [place] [address] Marlyn Oneil FNP Chronic fatigue; Moderate episode [...] 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
--- OUTSIDE RECORDS SUMMARY | 2025-02-08 11:14 | XMS_ITS | Encounter Summary ---
Author Organization [email or web address] Address [address] [place] [address] [address] [place] [address] Care Team Providers Care Security Trainer Name Role Phone Marlyn Oneil Primary Care Provider Unavailable Maria Isabel Peguero Unavailable Unavailable Inactive/Transferred Primary Care Provider Unava ilable Reason for Visit * Reason Comments Med Refill Encounter Details Date Type Department Care Team (Late st Contact Info) Description 12/01/2023 Refill [place] 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
--- OUTSIDE RECORDS SUMMARY | 2025-02-08 11:14 | XMS_ITS | Clinical Summary ---
Author Organization [employer] Address [address] [place] [address] [address] [place] [address] Care Team Providers Care Senior Mobile Web Developer Name Role Phone Maria Isabel Peguero Unavailable [...] lungs. See other diagnoses [facility]. 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 on file Not [...] Laterality Modality Breast Left Ultrasound Marlyn Oneil CABLE FORMER IMG US PROCEDURES Jennifer l Result * [...] AM EDT Performed at: 01 - [facility] [address] [id number] Spiral Binder: Lavinia Muniz MD, Phone: [phone] Marlyn Oneil CABLE FORMER LAB BLOOD ORDERABLES F inal Result [facility] 1 * POCT glycosylated hemoglobin (Hgb A1c) (12/11/2023 11:39 AM EDT) Hemoglobin A1C 5.8 4.0 - 6.0 % Blood Capillary blood specimen / Unknown 12/11/2023 11:39 AM EDT Marlyn Oneil CABLE FORMER POINT OF CARE TEST ENT ER/EDIT ORDERABLES Final Result * PAP, LB with CT/GC and HPV (10/23/2022 3:45 PM EDT) PAP, LB WITH CT/GC AND HPV Patient Name: TIA GUALLPA [facility] Comment: Patient : 1965 (Age: 57) Lab Collection Date: 10/23/2022 Accession Date: 10/24/2022 Sign Out Date: 11/14/2022 Tissue Source: 1: THINPREP TEAM ASSEMBLY LINE MACHINE OPERATOR PAP TEST, VAGINAL: Final Diagnosis: NEGATIVE FOR INTRAEPITHELIAL LESION OR MALIGNANCY. Satisfactory for evaluation. Procedures/Addenda: Human Papilloma Virus, High-Risk (Any Dx) Status: Signed Out Interpretation: Negative Methodology: [employer] Aptima HPV mRNA assay (Nucleic Acid Amplification Test, NAAT). Clinical History: Date of Last Menstrual Period: not available Menstrual History: not available Contraceptive History: not available Ancillary Testing: HPV (any dx) Chlamydia/GC Case imaged by the ThinPrep Imaging System with manual rescreening or review. Performed at [facility] department of Cytology, Graciela Leonard MA Clinical History (other): Z12.4 HISTORY OF PARTIAL HYSTERECTOMY; UNABLE TO VISUALIZE CERVIX. Phone #: [phone], On-Call Pathologist: [id number] Testing performed or reported by [facility], a Service of [facility], [address] [place] [address] Whitt, MD, Puppet Engineer [facility]# [id number] 10/23/2022 3:45 PM EDT 10/24/2022 12:41 AM EDT Marlyn Oneil CABLE FORMER LAB CYTOLOGY ORDERABLE S Final Result [facility] [address] [place] [address] * HIV-1 antibody, EIA (04/14/2018) External HIV-1 Antibody Negative Blood Venous blood specimen / Unknown Historical Provider LAB BLOOD ORDERABLES Jennifer l Result * (ABNORMAL) Colonoscopy (01/01/2015) Colonoscopy Abnormal( A) Normal Comment:Polyp, diverticulosi s, internal hemorrhoids Historical Provider HEALTH MAINTENANCE Final Result from Last 3 Months or Most Recently Relevant to Health Maintenance Insurance [facility] C3 GENERIC TPL Care Teams Senior Mobile Web Developer Relationship Specialty Start Date End Date Maria Isabel Peguero Community Health Worker 09/15/22
--- OUTSIDE RECORDS SUMMARY | 2025-02-08 11:14 | XMS_ITS | Encounter Summary ---
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 Not on file Not on file documented as of this encounter Plan of Treatment Not on file documented as of this encounter Procedures Procedure Name Priority Date/Time Associated Diagnosis Comments PULMONARY FUNCTION TESTING Routine 11/27/2023 Cough in adult patient History of asthma documented in this encounter Results * Pulmonary function test (11/27/2023) [facility] PERIOPERATIVE EDUCATOR PFT ORDERABLES Final Result documented in this encounter Visit Diagnoses Diagnosis Cough in adult patient History of asthma Personal history of other diseases of respiratory system documented in this encounter Additional Health Concerns Assessment Noted Time PHQ-9 Depression Total Score: 9 08/05/19 24 11:58 AM EDT documented as of this encounter Care Teams Heater Worker Relationship Specialty Start Date End Date Marlyn Oneil FNP PCP - General Family Medicine 08/01/22 07/20/24 Inactive/Transferred PCP - General 07/21/24 07/21/24 Maria Isabel Peguero Community Health Worker 09/15/22 documented as of this encounter
--- OUTSIDE RECORDS SUMMARY | 2025-02-08 11:14 | XMS_ITS | Encounter Summary ---
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
--- OUTSIDE RECORDS SUMMARY | 2025-02-08 11:14 | XMS_ITS | Encounter Summary ---
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
--- OUTSIDE RECORDS SUMMARY | 2025-02-08 11:14 | XMS_ITS | Encounter Summary ---
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
--- OUTSIDE RECORDS SUMMARY | 2025-02-08 11:15 | XMS_ITS | Clinical Summary ---
Author Organization [facility] Address [address] [employer] [facility] [address] [place] [address] Phone Care Team Providers Care Event Specialist Food Demonstrator Name Role Phone Destin White Marlynemily Gustafson FREIGHT TRAFFIC CONSULTANT Primary Care Pr ovider Allergies Active Allergy [...] (08/07/2021 3:35 PM EDT): Close follow-up with cigarette machines mechanic/respiratory therapy. Benefits of reducing weight as close as possible to ideal range for her height reviewed and strongly encouraged Assessment & Plan (05/25/2021 9:48 PM EST): Close follow-up with cigarette machines mechanic/respiratory therapy. Benefits of reducing weight as close as possible to ideal range for her height reviewed and strongly encouraged Assessment & Plan (07/07/2019 12:05 PM EST): Close follow-up with cigarette machines mechanic/respiratory therapy. Benefits of reducing weight as close as possible to ideal range for her height reviewed and strongly encouraged Assessment & Plan (05/22/2019 10:04 AM EST): Close follow-up with cigarette machines mechanic/respiratory therapy. Benefits of reducing weight as close as possible to ideal range for her height reviewed and strongly encouraged Assessment & Plan (03/16/2019 10:36 PM EDT): Close follow-up with cigarette machines mechanic/respiratory therapy. Benefits of reducing weight as close [...] C3 ACO C3 ACO C3 ACO [facility] C3 ACO Care Teams Event Specialist Food Demonstrator Relationship Specialty Start Date End Date Marlyn Melendrez NP [facility] [place] [address] PCP - General Family Medicine 07/07/19 Additional Source Comments The information contained in this document represents components of the legal health record. It is not the complete legal health record.[facility]
--- OUTSIDE RECORDS SUMMARY | 2025-02-08 11:15 | XMS_ITS | Encounter Summary ---
Author Organization [employer] Address [address] [facility] 7t [place] [address] Care Team Providers Care Pouch Making Machine Operator Name Role Phone Marlyn Oneil ELINA Primary Care Provider Unavailable Maria Isabel Peguero Unavailable Unavailable Inactive/Transferred Primary Care Provider Unava ilable Encounter Details Date Type Department Care Team (Late st Contact Info) Description 07/27/2023 Orders Only [employer] [facility] MED[facility] [address] [place] [address] Provider, MD Bryant Social History Tobacco Use [...] 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
--- OUTSIDE RECORDS SUMMARY | 2025-02-08 11:15 | XMS_ITS | Clinical Summary ---
Author Organization [facility] Address [address] [place] [address] Care Team Providers Care Shipping And Receiving Material Handler Name Role Phone Lily Corbett MD Primary [...] 2 (two) times a day. 0 Active Akjdmpj-Frfbdlgit-Oh tamin D (CALCIUM 500 PO) Take by mouth daily. 0 Acti ve nitrofurantoin (MACRODANTIN) 50 MG capsule Take 50 mg by mouth daily. 0 Active cholecalciferol (VITAMIN D3) 1000 UNITS tablet Take 1,000 Units by mouth daily. 0 Active [place]-3 Fatty Acids (FISH OIL PO) Take 1,000 [...] age to complete this topic Care Teams Shipping And Receiving Material Handler Relationship Specialty Start Date End Date Lily Corbett MD [address] [facility] [place] [id number] PCP - General Family Medicine 01/07/17
== END 2025-02-08 10:14 | disposition home or self-care (01) ==
LOC: HO.HBS 09:26
PROVIDERS: PCP Nurse Practitioner Family; Visit Provider Physician Assistant Surgical
DX: E66.9 Obesity, unspecified (principal); Z68.36 Body mass index [BMI] 36.0-36.9, adult; Z98.84 Bariatric surgery status
CPT/HCPCS: 99024

== ENCOUNTER 2025-03-24 12:00 | Outpatient (AMB) | payer OTHER, SELFPAY ==
--- NOTE | 2025-03-24 11:55 | MHC.OFFVISWM ---
Intake Visit Reasons: TV s/p Lap Band Removal 02/02/25 Allergies succinylcholine Allergy (Severe, Verified 02/08/25 09:43) Anaphylaxis aspirin Allergy (Intermediate, Verified 02/08/25 09:43) throat burning sulfamethoxazole (From Bactrim) Allergy (Intermediate, Verified 02/08/25 09:43) Blister trimethoprim (From Bactrim) Allergy (Intermediate, Verified 02/08/25 09:43) Blister Medication List - Last Reconciled 05/02/25 by RAJIV Christiansen albuterol sulfate 90 mcg/actuation (Ventolin HFA) 2 puffs inhalation Q6H PRN cholecalciferol (vitamin D3) 125 mcg PO DAILY cyanocobalamin (vitamin B-12) 1,000 mcg sublingual DAILY duloxetine 30 mg PO BID fluticasone propion-salmeterol 100-50 mcg/dose (Advair Diskus) 1 inh inhalation BID omeprazole 20 mg PO BID zinc gluconate 30 mg PO DAILY HPI Comments Details: Pt is s/p lap band removal 6d ago, 02/02/2025. No pain. No nausea. She has resumed her meal plan of bars, shakes, and 1 meal per day. Premier 4oz/4oz x 2 and 1 bar at night. She is happy to report she has stopped smoking. She also has excess skin of upper arms and is interested in brachioplasty. She previously had a panniculectomy. Her mom has 24 hour care provided by pt and she is concerned she damaged her incision when she was lifting her mom. [facility] Medical History Malignant hyperthermia DJD (degenerative joint disease) GERD (gastroesophageal reflux disease) Fibromyalgia Asthma BMI 36.0-36.9,adult Obesity Surgical History (Updated 02/08/25 @ 10:13 by RAJIV Christiansen) History of removal of laparoscopic gastric banding device Hx of hysterectomy Hx of foot surgery Hx of carpal tunnel repair Hx of hernia repair Hx of section Hx of plastic surgery Status post gastric banding surgery Family History Mother Alzheimer dementia Father COPD (chronic obstructive pulmonary disease) Asthma Hypertension Daughter Obesity Son Special educational needs Obesity Social History (Reviewed 02/08/25 @ 09:43 by STEVE Gómez Alcohol intake: never Patient Tobacco Use Status: Current someday Tobacco user Tobacco use type: Cigarette Cigarettes Per Day: 6 Telehealth Telehealth Telehealth Platform: Telephone Location of provider rendering services: practice address Location of patient: address on file Patient Identification confirmed using: Name, : Yes Telehealth method: voice only Patient verbally consented to treatment: Yes Patient verbally consented to billing insurance company: Yes Patient informed of any privacy concerns related to visit: Yes Minutes spent on Phone/Video with Pt.: 12 Assessment & Plan Assessment & Plan (1) Hx of laparoscopic gastric banding: Code(s): Z98.84 - Bariatric surgery status Category: Surgical (2) Obesity: Code(s): E66.9 - Obesity, unspecified Category: Medical Qualifiers: Obesity type: due to excess calories Obesity classification: adult class 2 (BMI 35 - 39.9) Serious obesity comorbidity presence: without serious comorbidity Body mass index: BMI 36.0-36.9 Qualified Code(s): E66.812 - Obesity, class 2; E66.09 - Other obesity due to excess calories; Z68.36 - Body mass index [BMI] 36.0-36.9, adult Plan Follow up as scheduled with Dr. Ireland. Continue above meal plan. Cleared for all activity once 6w postop.
--- OUTSIDE RECORDS SUMMARY | 2025-03-24 14:21 | XMS_ITS | Encounter Summary ---
Author Organization [employer] Address [address] [place] [address] [address] [place] [address] Care Team Providers Care Senior Medical Billing Specialist Name Role Phone Marlyn Oneil Primary Care Provider Unavailable Maria Isabel Peguero Unavailable Unavailable Inactive/Transferred Primary Care Provider Unava ilable Reason for Visit * Reason Comments Med Change Request Encounter Details Date Type Department Care Team (Late st Contact Info) Description 03/12/2023 Refill Dinah [facility] MED[facility] [address] [place] [address] Marlyn Oneil FNP Chronic fatigue; Moderate episode [...] 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
--- OUTSIDE RECORDS SUMMARY | 2025-03-24 14:21 | XMS_ITS | Encounter Summary ---
Author Organization [employer] Address [address] [place] [address] 7t [place] [address] Care Team Providers Care Health Information Systems Technician Name Role Phone Marlyn Oneil WINDOW SHADE CUTTER AND MOUNTER Primary Care Provider Unavailable Maria Isabel Peguero Unavailable Unavailable Inactive/Transferred Primary Care Provider Unava ilable Encounter Details Date Type Department Care Team (Late st Contact Info) Description 12/07/2023 Orders Only [place] [facility] MED[facility] [address] [place] [address] Lora Shelby NP Cough in adult patient; [...] 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 Not on file documented as of this encounter Plan of Treatment Not on file documented as of this encounter Procedures Procedure Name Priority Date/Time Associated Diagnosis Comments PULMONARY FUNCTION TESTING Routine 11/27/2023 Cough in adult patient History of asthma documented in this encounter Results * Pulmonary function test (11/27/2023) [facility] BAG MAKING MACHINE OPERATOR PFT ORDERABLES Final Result documented in this encounter Visit Diagnoses Diagnosis Cough in adult patient History of asthma Personal history of other diseases of respiratory system documented in this encounter Additional Health Concerns Assessment Noted Time PHQ-9 Depression Total Score: 9 08/05/19 24 11:58 AM EDT documented as of this encounter Care Teams Health Information Systems Technician Relationship Specialty Start Date End Date Marlyn Oneil FNP PCP - General Family Medicine 08/01/22 07/20/24 Inactive/Transferred PCP - General 07/21/24 07/21/24 Maria Isabel Peguero Community Health Worker 09/15/22 documented as of this encounter
--- OUTSIDE RECORDS SUMMARY | 2025-03-24 14:21 | XMS_ITS | Clinical Summary ---
Author Organization [employer] Address [address] [place] [address] 7t [place] [address] Care Team Providers Care Maintenance Controller Name Role Phone Maria Isabel Peguero Unavailable [...] of recurrent major depressive disorder (CMS/HCC) (HCC) Take 0.5 tablets (1 mg) by mouth at bedtime. 4 Active Fluticasone-Yaw meterol (Advair Diskus) 500-50 MCG/ACT aerosol powderIndicatio ns:Uncomplicate d severe persistent asthma (HCC) Inhale 1 puff 2 times daily. 60 each 11 4 Active omeprazole (PriLOSEC) [address] capsule TAKE 1 CAPSULE 30 MINS PRIOR TO EATING ORALLY TWICE DAILY FOR 30 DAYS 180 capsule 2 4 Active albuterol (Ventolin HFA) 108 (90 Base) MCG/ACT inhalerIndicati ons:Uncomplicat ed severe persistent asthma (HCC) INHALE 2 PUFFS EVERY 6 HOURS IF [...] lungs. [facility] Viral upper respiratory tract infection 09/28/19 [...] lungs. [facility]. Right upper quadrant abdominal pain [...] specialist scheduled for 08/10 Moderate episode of recurren t major depressive disorder ([facility]/HCC) 10/31/2022 Overview (08/05/2023): In a difficult position [...] Dr. 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 IMG US PROCEDURES Jennifer l Result * [...] AM EDT Performed at: 01 - [facility] [address] [id number] Political Scientist: Lavinia Muniz MD, Phone: [phone] Marlyn Oneil EVENT MARKETING REPRESENTATIVE LAB BLOOD ORDERABLES F inal Result [facility] 1 * POCT glycosylated hemoglobin (Hgb A1c) (12/11/2023 11:39 AM EDT) Hemoglobin A1C 5.8 4.0 - 6.0 % Blood Capillary blood specimen / Unknown 12/11/2023 11:39 AM EDT Marlyn Oneil EVENT MARKETING REPRESENTATIVE POINT OF CARE TEST ENT ER/EDIT ORDERABLES Final Result * PAP, LB with CT/GC and HPV (10/23/2022 3:45 PM EDT) PAP, LB WITH CT/GC AND HPV Patient Name: TIA GUALLPA [facility] Comment: Patient : 1965 (Age: 57) Lab Collection Date: 10/23/2022 Accession Date: 10/24/2022 Sign Out Date: 11/14/2022 Tissue Source: 1: THINPREP SOLAR PHOTOVOLTAIC ELECTRICIAN PAP TEST, VAGINAL: Final Diagnosis: NEGATIVE FOR INTRAEPITHELIAL LESION OR MALIGNANCY. Satisfactory for evaluation. Procedures/Addenda: Human Papilloma Virus, High-Risk (Any Dx) Status: Signed Out Interpretation: Negative Methodology: TapShield Aptima HPV mRNA assay (Nucleic Acid Amplification Test, NAAT). Clinical History: Date of Last Menstrual Period: not available Menstrual History: not available Contraceptive History: not available Ancillary Testing: HPV (any dx) Chlamydia/GC Case imaged by the ThinPrep Imaging System with manual rescreening or review. Performed at [facility] department of Cytology, [facility] Clinical History (other): Z12.4 HISTORY OF PARTIAL HYSTERECTOMY; UNABLE TO VISUALIZE CERVIX. Phone #: [phone], On-Call Pathologist: [id number] Testing performed or reported by [facility], a Service of [facility], [address] [place] [address] Sung Whitt MD, Implementation Analyst [facility]# [id number] 10/23/2022 3:45 PM EDT 10/24/2022 12:41 AM EDT Marlyn Oneil EVENT MARKETING REPRESENTATIVE LAB CYTOLOGY ORDERABLE S Final Result [facility] [address] [place] [id number] * HIV-1 antibody, EIA (04/14/2018) External HIV-1 Antibody Negative Blood Venous blood specimen / Unknown Historical Provider LAB BLOOD ORDERABLES Jennifer l Result * (ABNORMAL) Colonoscopy (01/01/2015) Colonoscopy Abnormal( A) Normal Comment:Polyp, diverticulosi s, internal hemorrhoids Historical Provider HEALTH MAINTENANCE Final Result from Last 3 Months or Most Recently Relevant to Health Maintenance Insurance [facility] C3 GENERIC TPL Care Teams Maintenance Controller Relationship Specialty Start Date End Date Maria Isabel Peguero Community Health Worker 09/15/22
--- OUTSIDE RECORDS SUMMARY | 2025-03-24 14:21 | XMS_ITS | Encounter Summary ---
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
--- OUTSIDE RECORDS SUMMARY | 2025-03-24 14:21 | XMS_ITS | Encounter Summary ---
Author Organization [employer] Address [address] [place] [address] [address] [place] [address] Care Team Providers Care Cream Tester Name Role Phone Marlyn Oneil Primary Care Provider Unavailable Maria Isabel Peguero Unavailable Unavailable Inactive/Transferred Primary Care Provider Unava ilable Reason for Visit * Reason Comments Med Refill Encounter Details Date Type Department Care Team (Late st Contact Info) Description 12/01/2023 Refill [place] [facility] MED[facility] [address] [place] [address] Marlyn Oneil FNP Uncomplicated severe persistent asthma [...] the past 12 months, has t he [employer], gas, oil or water company threatened to [...] 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
--- OUTSIDE RECORDS SUMMARY | 2025-03-24 14:21 | XMS_ITS | Clinical Summary ---
Author Organization [facility] Address [address] [employer] [facility] [address] [place] [address] Phone Care Team Providers Care Cold Type Composing Machine Operator Name Role Phone Destin White Marlynemily Gustafson NAIL EXPERT Primary Care Pr ovider Allergies Active Allergy [...] (08/07/2021 3:35 PM EDT): Close follow-up with music video producer/respiratory therapy. Benefits of reducing weight as close as possible to ideal range for her height reviewed and strongly encouraged Assessment & Plan (05/25/2021 9:48 PM EST): Close follow-up with music video producer/respiratory therapy. Benefits of reducing weight as close as possible to ideal range for her height reviewed and strongly encouraged Assessment & Plan (07/07/2019 12:05 PM EST): Close follow-up with music video producer/respiratory therapy. Benefits of reducing weight as close as possible to ideal range for her height reviewed and strongly encouraged Assessment & Plan (05/22/2019 10:04 AM EST): Close follow-up with music video producer/respiratory therapy. Benefits of reducing weight as close as possible to ideal range for her height reviewed and strongly encouraged Assessment & Plan (03/16/2019 10:36 PM EDT): Close follow-up with music video producer/respiratory therapy. Benefits of reducing weight as close [...] VACCINE (#1) 2024 COVID-19 VACCINE ( - 2024-2 6 season) 2025 RSV VACCINE (1 - 1-dose [...] ACO C3 ACO C3 ACO C3 ACO [facility] C3 ACO Care Teams Cold Type Composing Machine Operator Relationship Specialty Start Date End Date Marlyn Melendrez [facility] [place] [address] PCP - General Family Medicine 07/07/19 Additional Source Comments The information contained in this document represents components of the legal health record. It is not the complete legal health record.[facility]
--- OUTSIDE RECORDS SUMMARY | 2025-03-24 14:21 | XMS_ITS | Encounter Summary ---
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
--- OUTSIDE RECORDS SUMMARY | 2025-03-24 14:21 | XMS_ITS | Encounter Summary ---
Author Organization [employer] Address [address] [place] [address] [address] [place] [address] Care Team Providers Care Email Marketing Intern Name Role Phone Marlyn Oneil Primary Care Provider Unavailable Maria Isabel Peguero Unavailable Unavailable Inactive/Transferred Primary Care Provider Unava ilable Reason for Visit * Reason Comments Med Change Request Encounter Details Date Type Department Care Team (Late st Contact Info) Description 03/12/2023 Refill [facility] [address] [place] [address] Marlyn Oneil FNP Chronic fatigue; Moderate episode [...] 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
--- OUTSIDE RECORDS SUMMARY | 2025-03-24 14:22 | XMS_ITS | Clinical Summary ---
Author Organization [employer] [facility] Address [address] [place] [address] Care Team Providers Care Veneer Sheet Repairer Name Role Phone Lily Corbett MD Primary [...] 2 (two) times a day. 0 Active Gkxzghw-Eratnctgz-Ew tamin D (CALCIUM 500 PO) Take by mouth daily. 0 Acti ve nitrofurantoin (MACRODANTIN) 50 MG capsule Take 50 mg by mouth daily. 0 Active cholecalciferol (VITAMIN D3) 1000 UNITS tablet Take 1,000 Units by mouth daily. 0 Active [place]-3 Fatty Acids (FISH OIL PO) Take 1,000 [...] age to complete this topic Care Teams Veneer Sheet Repairer Relationship Specialty Start Date End Date Lily Corbett MD [address] [facility] [place] [phone] PCP - General Family Medicine 01/07/17
--- OUTSIDE RECORDS SUMMARY | 2025-03-24 14:22 | XMS_ITS | Encounter Summary ---
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
== END 2025-03-24 13:02 | disposition home or self-care (01) ==
LOC: HO.HBS 12:00
PROVIDERS: PCP Nurse Practitioner Family; Visit Provider Physician Assistant Surgical
DX: E66.812 Obesity, class 2 (principal); Z68.36 Body mass index [BMI] 36.0-36.9, adult; Z98.84 Bariatric surgery status
CPT/HCPCS: 99024